=== PATIENT | female | born 1930 | race Caucasian/White ===

== ENCOUNTER 2017-07-21 12:48 | Inpatient (IN) | payer MEDICAID ==
[2017-07-21 13:32] VITALS: BP 99/60
[2017-07-21] MEDS: D5-0.45NS 1,000 ML IV SCH ×2 (13:58→23:49)
[2017-07-21 14:30] LABS: HEMOGLOBIN 11.6 gm/dL (12-16); MANUAL DIFF REQUIRED? YES; MEAN CELL VOLUME 85.8 fl (81-100); MEAN CORPUSCULAR HEMOGLOBIN 29.3 pg (27.0-31.0); MEAN CORPUSCULAR HGB CONC 34.1 pg (28.0-36.0); PLATELET COUNT 288 Th/cmm (150-400); RED BLOOD COUNT 3.97 Mil/cmm (3.80-5.20)
[2017-07-21 14:40] LABS: ANION GAP 11.2 (7.0-16.0); BUN - UREA NITROGEN 16 mg/dL (7-25); CALCIUM SERUM 8.5 mg/dL (8.6-10.3); CARBON DIOXIDE 21.5 mEq/L (21.0-31.0); CHLORIDE 106 mEq/L (98-107); CREATININE - SERUM 0.7 mg/dL (0.6-1.2); GLUCOSE 157 mg/dL (70-105); POTASSIUM SERUM 3.7 mEq/L (3.5-5.1); SODIUM SERUM 135 mEq/L (136-145)
[2017-07-21 14:44] LABS: WHITE BLOOD COUNT 16.9 Th/cmm (4.8-10.8)
[2017-07-21] MEDS ORDERED: KCL 20mEq/100mL Premix 20 MEQ/100 ML PIGGYBACK IV ONE (14:58)
[2017-07-21 15:09] LABS: BAND NEUTROPHILE 14 % (0-10); BASOPHIL 0 % (0-3); EOSINOPHIL 0 % (0-5); LYMPHOCYTE 5 % (20-50); MONOCYTE 2 % (2-10); NEUTROPHILS 79 % (40-80); PLATELET ESTIMATE ADEQUATE (NORMAL); PLATELET MORPHOLOGY NORMAL (NORMAL); TOTAL CELLS COUNTED 100
[2017-07-21 15:14] LABS: URINE BILIRUBIN NEGATIVE (NEGATIVE); URINE BLOOD MODERATE (NEGATIVE); URINE GLUCOSE (UA) NEGATIVE (NEGATIVE); URINE KETONE NEGATIVE (NEGATIVE); URINE LEUKOCYTE ESTERASE MODERATE (NEGATIVE); URINE MICROSCOPIC INDICATED? YES; URINE NITRATE POSITIVE (NEGATIVE); URINE PROTEIN 30 mg/dL (NEGATIVE); URINE SOURCE FOLEY PORT; URINE UROBILINOGEN 0.2 E.U./dL (0.2 - 1.0)
[2017-07-21 15:23] LABS: URINE CLARITY HAZY (CLEAR); URINE COLOR YELLOW
[2017-07-21 15:24] LABS: URINE BACTERIA MODERATE /hpf (NONE SEEN); URINE EPITHELIAL CELLS FEW /lpf (FEW); URINE WBC 25-50 /hpf (0-5)
[2017-07-21] MEDS ORDERED: VTE Chemical Prophylaxis Screen/Admission MC PRN (16:45)
[2017-07-21] MEDS: Levofloxacin 500mg/100mL 500 MG/100 ML BAG IV SCH (18:03)
[2017-07-22 05:15] LABS: HEMATOCRIT 31.3 % (41.0-60); HEMOGLOBIN 10.6 gm/dL (12-16); MEAN CELL VOLUME 85.2 fl (81-100); MEAN CORPUSCULAR HEMOGLOBIN 28.9 pg (27.0-31.0); MEAN CORPUSCULAR HGB CONC 33.9 pg (28.0-36.0); MEAN PLATELET VOLUME 7.2 fl; RED BLOOD COUNT 3.67 Mil/cmm (3.80-5.20); RED CELL DISTRIBUTION WIDTH 14.4 % (11.5-20.0)
[2017-07-22 05:16] LABS: MANUAL DIFF REQUIRED? YES; PLATELET COUNT 222 Th/cmm (150-400); WHITE BLOOD COUNT 11.8 Th/cmm (4.8-10.8)
[2017-07-22 05:28] LABS: INR 1.05 (0.5-1.4); PROTHROMBIN TIME (TEST) 10.9 SECONDS (9.5-11.5)
[2017-07-22 05:30] LABS: ALB/GLOB RATIO 1.3 (1.0-1.8); ALBUMIN 3.3 gm/dL (3.7-5.3); ALKALINE PHOSPHATASE 80 U/L (34-104); ANION GAP 7.9 (7.0-16.0); BILIRUBIN,TOTAL 0.5 mg/dL (0.3-1.0); BUN - UREA NITROGEN 11 mg/dL (7-25); CALCIUM SERUM 8.2 mg/dL (8.6-10.3); CARBON DIOXIDE 21.1 mEq/L (21.0-31.0); CHLORIDE 103 mEq/L (98-107); CREATININE - SERUM 0.7 mg/dL (0.6-1.2); GLUCOSE 159 mg/dL (70-105); MAGNESIUM 1.6 mg/dL (1.9-2.7); PHOSPHOROUS 1.9 mg/dL (2.5-5.0); SGOT 27 U/L (13-39); SGPT/ALT 22 U/L (7-52); SODIUM SERUM 129 mEq/L (136-145); TOTAL PROTEIN,SERUM 5.9 gm/dL (6.0-8.3)
[2017-07-22 05:46] LABS: BAND NEUTROPHILE 7 % (0-10); LYMPHOCYTE 5 % (20-50); MONOCYTE 1 % (2-10); NEUTROPHILS 87 % (40-80); TOTAL CELLS COUNTED 100
[2017-07-22] MEDS: KCL 20mEq/100mL Premix 20 MEQ/100 ML PIGGYBACK IV SCH ×2 (07:53→10:20)
--- NOTE | 2017-07-22 08:27 | Diagnostic Imaging Report ---
Exam: Portable chest x-ray HISTORY: pneumonia. I needs: Portable examination of the chest at 1559 hours reviewed. No prior studies available comparison. The study demonstrates mild congestion. Bilateral basilar infiltrates and effusions appreciated. The patient significantly rotated. The visualized bony thorax are marked degenerative osteopenia. IMPRESSION: 1. Congestion 2. Bilateral basilar pneumonia with effusions follow-up examination is recommended.
--- NOTE | 2017-07-22 10:08 | Consultation ---
DATE OF CONSULTATION: 07/21/2017 ATTENDING PHYSICIAN: Dr. Vivas. ANESTHESIA ASSOCIATE: Vasquez Dey MD REASON FOR CONSULTATION: Worsening kidney function and electrolyte imbalance and fluid management. HISTORY OF PRESENT ILLNESS: This is an 86-year-old female with past medical history none, who was transferred from [facility] to [facility] for further management. A few hours prior to admission, the patient developed nausea and vomiting. This was associated with generalized weakness, chills, but no fever. She was then brought to the Emergency Room. Her white count was 10.9 with a lipase of 20 and temperature of 101.[address] scan of the head showed cortical atrophy with deep white matter ischemic changes. Chest x-ray revealed no acute disease. CT scan of the abdomen/pelvis showed gallbladder stones, distal left ureteral stone with mild left hydroureter. There is mild compression fracture from T9 to L4, age undetermined and moderate stool in the rectum. Her BUN/creatinine were 20/1.1 with a potassium of 3.3. No diarrhea, abdominal pain, shortness of breath, no chest pain. PAST MEDICAL HISTORY: None. CURRENT MEDICATIONS: Acetaminophen, levofloxacin, vancomycin. ALLERGIES: No known drug allergies. SOCIAL AND FAMILY HISTORY: I was unable to obtain directly from the patient because of patient's depressed mental status as well as dementia. REVIEW OF SYSTEMS: Again, I was unable to decipher directly from the patient because of her current mental status. PHYSICAL EXAMINATION: GENERAL: The patient is awake, not in any form of distress, responds by saying "si." VITAL SIGNS: Her blood pressure now is 99/60. SKIN: Poor turgor, warm, no rash, no jaundice appreciated. HEENT: Head normocephalic, atraumatic. Eyes: Extraocular muscles intact. Pupils equal, round, reactive to light and accommodates. Anicteric sclerae. Pale conjunctivae. Nose, midline nasal septum. Mouth, dry mucosa with poor dentition. NECK: Supple. No adenopathy, no thyromegaly, no bruits. Trachea palpated in the midline. CHEST AND CVS: S1, S2. No rub, murmur, no gallop appreciated. Point of maximal impulse fifth intercostal space, left midclavicular line. No abdominal or femoral bruits appreciated. LUNGS: Equal expansion. No use of accessory muscles. No supraclavicular retractions. Decreased breath sounds, few rhonchi, but no rales or wheezes or congestion appreciated. Breast symmetrical, without any discharge. ABDOMEN: Flat, soft. Positive for bowel sounds. No tenderness on the palpation. No guarding, no site. No bruit either diastolic or systolic. RECTAL: The patient refused. GENITOURINARY: Normal appearing female genitalia. MUSCULOSKELETAL: No effusions present in her joints, unable to assess her range of motion. EXTREMITIES: She has no evidence of any edema, cyanosis or clubbing with palpable femoral, popliteal and dorsalis pedis pulses. NEUROLOGIC: The patient is awake; however, unable to follow my neuro commands, so I was unable to pursue further my neuro exam. LABORATORY DATA: Still pending. IMPRESSION: 1. Mild prerenal azotemia with underlying history of nausea and vomiting. 2. Sepsis secondary to complicated urinary tract infection. 3. Left hydroureter secondary to left ureteral stone. 4. Gallbladder stone with history of fever, mild leukocytosis, nausea and vomiting, possible acute cholecystitis. 5. 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 PLAN: 1. Continue with IV fluids. 2. Started blood expected antibiotics. 3. Follow up blood culture x 2. 4. Urine C and S. 5. Urology consult. 6. HIDA scan. 7. Urinalysis. 8. Urine spot sodium, eosinophils and creatinine. 9. Urine microalbumin to creatinine ratio. Thank you Dr. Vivas for this consult. I will follow the patient closely with you. [facility]# [id number]
[2017-07-22] MEDS ORDERED: IOHEXOL 300mgI/mL 50 ML VIAL ONE (13:06)
[2017-07-22] MEDS ORDERED: Tolterodine Tartrate 2 mg ER Cap PO SCH (14:00)
[2017-07-22] MEDS ORDERED: Mag Sulfate 2gm/50mL Premix 2 GM/50 ML BAG IV ONE (14:13)
[2017-07-22] MEDS ORDERED: Midazolam 1mg/ml 2 ml vial IV ONE (14:18)
--- NOTE | 2017-07-22 14:19 | General Progress Note ---
Subjective - Review of Systems Service Date: 07/22/17 Subjective: awake, nonverbal. comfortable Objective - Results Result Diagrams: 07/22/17 05:05 07/22/17 05:05 Recent Labs: Laboratory Last Values WBC 11.8 Th/cmm (4.8-10.8) H D 07/22/17 05:05 RBC 3.67 Mil/cmm (3.80-5.20) L 07/22/17 05:05 Hgb 10.6 gm/dL (12-16) L 07/22/17 05:05 Hct 31.3 % (41.0-60) L 07/22/17 05:05 MCV 85.2 fl (81-100) 07/22/17 05:05 MCH 28.9 pg (27.0-31.0) 07/22/17 05:05 MCHC Differential 33.9 pg (28.0-36.0) 07/22/17 05:05 RDW 14.4 % (11.5-20.0) 07/22/17 05:05 Plt Count 222 Th/cmm (150-400) D 07/22/17 05:05 MPV 7.2 fl 07/22/17 05:05 Band Neutrophils % 7 % (0-10) 07/22/17 05:05 Neutrophils (Manual) 87 % (40-80) H 07/22/17 05:05 Lymphocytes 5 % (20-50) L 07/22/17 05:05 Monocytes 1 % (2-10) L 07/22/17 05:05 Eosinophils 0 % (0-5) 07/21/17 14:15 Basophils 0 % (0-3) 07/21/17 14:15 Platelet Estimate ADEQUATE (NORMAL) 07/21/17 14:15 Platelet Morphology NORMAL (NORMAL) 07/21/17 14:15 RBC Morph Micro Appear NORMAL (NORMAL) 07/21/17 14:15 PT 10.9 SECONDS (9.5-11.5) 07/22/17 05:05 INR 1.05 (0.5-1.4) 07/22/17 05:05 PTT (Actin FS) 29.4 SECONDS (26.0-38.0) 07/22/17 05:05 Sodium 129 mEq/L (136-145) L 07/22/17 05:05 Potassium 3.0 mEq/L (3.5-5.1) L 07/22/17 05:05 Chloride 103 mEq/L (98-107) 07/22/17 05:05 Carbon Dioxide 21.1 mEq/L (21.0-31.0) 07/22/17 05:05 Anion Gap 7.9 (7.0-16.0) 07/22/17 05:05 BUN 11 mg/dL (7-25) 07/22/17 05:05 Creatinine 0.7 mg/dL (0.6-1.2) 07/22/17 05:05 Est GFR ( Amer) TNP 07/22/17 05:05 Est GFR (Non-Af Amer) TNP 07/22/17 05:05 BUN/Creatinine Ratio 15.7 07/22/17 05:05 Glucose 159 mg/dL (70-105) H 07/22/17 05:05 Whole Bld Lactic Acid 1.65 mmol/L (0.60-1.99) 07/22/17 05:05 Calcium 8.2 mg/dL (8.6-10.3) L 07/22/17 05:05 Phosphorus 1.9 mg/dL (2.5-5.0) L 07/22/17 05:05 Magnesium 1.6 mg/dL (1.9-2.7) L 07/22/17 05:05 Total Bilirubin 0.5 mg/dL (0.3-1.0) 07/22/17 05:05 AST 27 U/L (13-39) 07/22/17 05:05 ALT 22 U/L (7-52) 07/22/17 05:05 Alkaline Phosphatase 80 U/L (34-104) 07/22/17 05:05 Ammonia 38 umol/L (16-53) 07/21/17 14:15 Troponin I 0.65 ng/mL (0.01-0.05) H* 07/21/17 14:15 Total Protein 5.9 gm/dL (6.0-8.3) L 07/22/17 05:05 Albumin 3.3 gm/dL (3.7-5.3) L 07/22/17 05:05 Globulin 2.6 gm/dL 07/22/17 05:05 Albumin/Globulin Ratio 1.3 (1.0-1.8) 07/22/17 05:05 Urine Source [place] 07/21/17 14:50 Urine Color YELLOW 07/21/17 14:50 Urine Clarity HAZY (CLEAR) 07/21/17 14:50 Urine pH 8.0 (4.6 - 8.0) 07/21/17 14:50 Ur Specific [place] 1.015 (1.005-1.030) 07/21/17 14:50 Urine Protein 30 mg/dL (NEGATIVE) H 07/21/17 14:50 Urine Glucose (UA) NEGATIVE mg/dL (NEGATIVE) 07/21/17 14:50 Urine Ketones NEGATIVE mg/dL (NEGATIVE) 07/21/17 14:50 Urine Blood MODERATE (NEGATIVE) H 07/21/17 14:50 Urine Nitrate POSITIVE (NEGATIVE) H 07/21/17 14:50 Urine Bilirubin NEGATIVE (NEGATIVE) 07/21/17 14:50 Urine Urobilinogen 0.2 E.U./dL (0.2 - 1.0) 07/21/17 14:50 Ur Leukocyte Esterase MODERATE (NEGATIVE) H 07/21/17 14:50 Urine RBC 10-25 /hpf (0-5) H 07/21/17 14:50 Urine WBC 25-50 /hpf (0-5) H 07/21/17 14:50 Ur Epithelial Cells FEW /lpf (FEW) 07/21/17 14:50 Urine Bacteria MODERATE /hpf (NONE SEEN) H 07/21/17 14:50 - Physical Exam Vitals and I&O: Vital Signs Temp 100.8 F 07/22/17 12:00 Pulse 91 07/22/17 12:00 Resp 20 07/22/17 12:00 BP 148/79 07/22/17 12:00 Pulse Ox 96 07/22/17 12:00 Intake & Output 07/21/17 07/22/17 07/22/17 18:59 06:59 18:59 Intake Total 150 1100 100 Output Total 450 1600 Balance -300 -500 100 Weight (lbs) 55.792 kg 55.792 kg Intake: Intake, IV Amount 1000 100 D5-0.45NS 1,000 ml @ 150 1000 mls/hr IV .Q6H40M [facility] Rx# :[id number] KCL 20mEq/100mL Premix 20 100 meq In 100 ml @ 50 mls/ hr IV Q2H [facility] Rx#: [id number] Oral 150 100 Output: Urine 450 1600 Other: # Bowel Movements 0 0 Active Medications: Current Medications Acetaminophen (Tylenol) 650 mg PO Q4H PRN PRN Reason: Pain Or Fever >100 Stop: 09/19/17 13:36 Last Admin: 07/21/17 20:26 Dose: 650 mg Heparin Sodium (Porcine) (Heparin) 5,000 units SUBQ Q12HR [facility] Stop: 09/19/17 20:59 Last Admin: 07/22/17 10:38 Dose: Not Given Levofloxacin (Levaquin Pb) 500 mg in 100 mls @ 100 mls/hr IV Q24HR [facility] Stop: 09/19/17 14:44 Last Admin: 07/21/17 18:03 Dose: 100 mls/hr Dextrose/Sodium Chloride (D5-0.9%Ns) 1,000 mls @ 100 mls/hr IV .Q10H [facility] Stop: 09/20/17 14:14 Sodium Phosphate 20 mmole/ (Sodium Chloride) 256.6667 mls @ 42.5 mls/hr IV X1 ONE Stop: 07/22/17 20:14 Magnesium Sulfate (Magnesium Sulfate Premix) 2 gm in 50 mls @ 25 mls/hr IV X1 ONE Stop: 07/22/17 16:12 Miscellaneous (Vte Chemical Prophylaxis Screen/ Admission) 1 [facility] PRN PRN PRN Reason: PROTOCOL Stop: 09/19/17 16:44 Ondansetron HCl (Zofran) 4 mg IV Q4H PRN PRN Reason: Nausea / Vomiting Stop: 09/19/17 16:55 Oxybutynin Chloride (Ditropan) 5 mg PO BID [facility] Stop: 09/20/17 16:59 Tamsulosin HCl (Flomax) 0.4 mg PO DAILY [facility] Stop: 09/19/17 15:44 Last Admin: 07/22/17 10:15 Dose: Not Given Tramadol HCl (Ultram) 50 mg PO Q6HR PRN PRN Reason: Pain (Moderate) Stop: 09/19/17 16:56 General: Alert, No acute distress HEENT: PERRLA, EOMI, Mucous membr. moist/pink Neck: Supple, +2 carotid pulse wo bruit Cardiovascular: Regular rate, Normal S1, Normal S2 Lungs: Clear to auscultation Abdomen: Bowel sounds, Soft Extremities: no Edema Neurological: Sensation intact Skin: no Rash Psych/Mental Status: Mood NL Assessment/Plan - Assessment Assessment: Pre renal azotemia Sepsis 2nd tyo UTI Left hydroureter 2nd to Left ureteral stone GB stones Electrolyte imbalance - Plan Plan: Lab - Result Diagrams 07/22/17 05:05 07/22/17 05:05 Current Medications Acetaminophen (Tylenol) 650 mg PO Q4H PRN PRN Reason: Pain Or Fever >100 Stop: 09/19/17 13:36 Last Admin: 07/21/17 20:26 Dose: 650 mg Heparin Sodium (Porcine) (Heparin) 5,000 units SUBQ Q12HR [facility] Stop: 09/19/17 20:59 Last Admin: 07/22/17 10:38 Dose: Not Given Levofloxacin (Levaquin Pb) 500 mg in 100 mls @ 100 mls/hr IV Q24HR [facility] Stop: 09/19/17 14:44 Last Admin: 07/21/17 18:03 Dose: 100 mls/hr Dextrose/Sodium Chloride (D5-0.9%Ns) 1,000 mls @ 100 mls/hr IV .Q10H [facility] Stop: 09/20/17 14:14 Sodium Phosphate 20 mmole/ (Sodium Chloride) 256.6667 mls @ 42.5 mls/hr IV X1 ONE Stop: 07/22/17 20:14 Magnesium Sulfate (Magnesium Sulfate Premix) 2 gm in 50 mls @ 25 mls/hr IV X1 ONE Stop: 07/22/17 16:12 Miscellaneous (Vte Chemical Prophylaxis Screen/ Admission) 1 [facility] PRN PRN PRN Reason: PROTOCOL Stop: 09/19/17 16:44 Ondansetron HCl (Zofran) 4 mg IV Q4H PRN PRN Reason: Nausea / Vomiting Stop: 09/19/17 16:55 Oxybutynin Chloride (Ditropan) 5 mg PO BID [facility] Stop: 09/20/17 16:59 Tamsulosin HCl (Flomax) 0.4 mg PO DAILY [facility] Stop: 09/19/17 15:44 Last Admin: 07/22/17 10:15 Dose: Not Given Tramadol HCl (Ultram) 50 mg PO Q6HR PRN PRN Reason: Pain (Moderate) Stop: 09/19/17 16:56 Lab - Result Diagrams 07/22/17 05:05 07/22/17 05:05 replace Na, K, P04, Mg continue ABx switch to D5NS f/u electrolytes
--- NOTE | 2017-07-22 14:41 | Diagnostic Imaging Report ---
Fluoroscopy was utilized to facilitation of nephroureteral stent placement. Please refer to the procedural report for complete details. The total fluoroscopic time was 41 seconds.
[2017-07-22 15:33] LABS: HEMATOCRIT 31.7 % (41.0-60); HEMOGLOBIN 10.5 gm/dL (12-16); LYMPHOCYTE ABSOLUTE 0.2 Th/cmm (1.5-3.0); MANUAL DIFF REQUIRED? YES; MEAN CORPUSCULAR HGB CONC 33.3 pg (28.0-36.0); MEAN PLATELET VOLUME 7.2 fl; NEUTROPHILE ABSOLUTE 1.1 Th/cmm (1.8-8.0); RED BLOOD COUNT 3.64 Mil/cmm (3.80-5.20)
[2017-07-22 15:39] LABS: ALB/GLOB RATIO 1.2 (1.0-1.8); ALBUMIN 3.3 gm/dL (3.7-5.3); ALKALINE PHOSPHATASE 114 U/L (34-104); ANION GAP 12.7 (7.0-16.0); BILIRUBIN,TOTAL 0.8 mg/dL (0.3-1.0); BUN - UREA NITROGEN 10 mg/dL (7-25); CALCIUM SERUM 8.1 mg/dL (8.6-10.3); CHLORIDE 104 mEq/L (98-107); CREATININE - SERUM 0.7 mg/dL (0.6-1.2); GLUCOSE 140 mg/dL (70-105); POTASSIUM SERUM 3.7 mEq/L (3.5-5.1); SGOT 29 U/L (13-39); SGPT/ALT 22 U/L (7-52); SODIUM SERUM 133 mEq/L (136-145)
[2017-07-22 15:47] LABS: PLATELET COUNT 162 Th/cmm (150-400); WHITE BLOOD COUNT 1.3 Th/cmm (4.8-10.8)
[2017-07-22] MEDS ORDERED: Sodium Phosphate 20 MMOLE in Sodium Chloride 0.9% 250 ML IV ONE (16:00)
[2017-07-22] MEDS: Levofloxacin 500mg/100mL 500 MG/100 ML BAG IV SCH (16:27)
--- NOTE | 2017-07-22 16:58 | Consultation ---
DATE OF CONSULTATION: 07/22/2017 UROLOGY CONSULTATION REASON FOR CONSULTATION: Seen for stone and hydronephrosis and sepsis. HISTORY OF PRESENT ILLNESS: This is an 86-year-old woman who was transferred from [facility] where she presented with abdominal pain and nausea and vomiting. She also had chills and weakness and a temperature up to 101. The patient has no history of stone disease in the past, but there is a question whether she had this many years ago. Details are unknown. No urologic surgery, hematuria, or history of bladder or kidney infections. PAST SURGICAL HISTORY: Negative. PAST MEDICAL HISTORY: Negative for diabetes, hypertension, or heart disease. MEDICATIONS: Before admission are as Tylenol, Levaquin, and vancomycin started at the other hospital. ALLERGIES: None. SOCIAL HISTORY: The patient is nonverbal and depressed after the demise of her . She also has some degree of dementia. REVIEW OF SYSTEMS: Obtained from the chart. No headaches, seizures, or weight loss. Denies chest pain, coughing, or shortness of breath. As per family members, we will communicate with her in some manner. Abdominal pain located on the left side. No guarding or rigidity. No organomegaly, mass, or hernia. Extremities, no edema or lymphadenopathy. Neurologic, nonfocal. PHYSICAL EXAMINATION: VITAL SIGNS: Temperature 100.8, blood pressure 148/79, heart rate 102. HEAD AND NECK: Normocephalic. Trachea central. Pupils equal and reactive. No jaundice. Thyroid and lymph nodes not palpable. Carotid bruit absent. CHEST: Symmetrical. LUNGS: Clear. No rales or rhonchi. HEART: Sounds normal in sinus rhythm, no murmur. ABDOMEN: Soft, tender in the left lower quadrant and left flank on percussion. No organomegaly, mass, or hernia. EXTREMITIES: No edema or lymphadenopathy. NEUROLOGIC: Nonfocal. Moves all 4 limbs. LABORATORY DATA: White count 16.9 yesterday, 11.8 today. There were 14 bands yesterday, today 7, hemoglobin 10.6, platelets adequate. PT/INR 1.0. Sodium 129, potassium 3, BUN 11, creatinine 0.7, glucose 159. Troponin 0.65. Urine showed moderate amount of blood, positive for nitrites, moderate amount of leukocyte esterase, 10-15 red cells, 25-50 white cells, and moderate bacteria. Urine culture, no growth after one day. CT from the outside shows a 5 mm stone in the left distal ureter with hydronephrosis and perinephric stranding. IMPRESSION: Left ureteral stone and obstruction with infection, elevated white count and fever. RECOMMENDATIONS: Recommend urgent stent insertion and elective stone surgery in the near future when she is stable. Surprisingly at this age, she has no other medical history. Thank you for this referral. [facility]# [id number]
--- NOTE | 2017-07-22 17:43 | Operative Report ---
DATE OF SURGERY: 07/22/2017 PREOPERATIVE DIAGNOSIS: Left ureteral stone with hydronephrosis and infection. POSTOPERATIVE DIAGNOSES: Left ureteral stone with hydronephrosis and infection and bladder stone. PROCEDURE: Cystoscopy, removal of bladder stone, left retrograde pyelogram with injection of contrast, insertion of double-J stent, left side under fluoroscopy guidance. INDICATION: The patient is an elderly 86-year-old who came in with a stone, abdominal pain and sepsis with elevated white count, fever and low blood pressure. This procedure was recommended as an urgent part of her treatment. FINDINGS: Cystoscopy showed small bladder stone, but otherwise unremarkable. Retrograde was also unremarkable with suggestion of stone in the lower ureter and double-J stent size 6 x 22 was placed in adequate position without any blood loss or complication. DESCRIPTION OF PROCEDURE: The patient was brought to the operating room, prepped and draped in the dorsal lithotomy position after general anesthesia was induced. After dilating the urethra, the bladder was entered and examined. Stone was noted. It was removed with the help of grasping forceps and sent for analysis. Left orifice was then cannulated and contrast was injected under fluoroscopy. Newspaper Inserter films were obtained and saved. The catheter was then used to pass a guidewire up into the kidney and after it was in satisfactory position, the catheter was removed. A 6 x 22 double-J stent was advanced over the wire, once again coiling the upper part in the renal pelvis and in the bladder to complete the procedure. She was returned to recovery in stable condition without blood loss or complication. JOB# [id number]
[2017-07-22 18:47] LABS: URINE MICROSCOPIC INDICATED? YES; URINE SOURCE RANDOM
[2017-07-22 18:49] LABS: URINE BILIRUBIN NEGATIVE (NEGATIVE); URINE BLOOD LARGE (NEGATIVE); URINE GLUCOSE (UA) NEGATIVE (NEGATIVE); URINE KETONE NEGATIVE (NEGATIVE); URINE LEUKOCYTE ESTERASE SMALL (NEGATIVE); URINE NITRATE POSITIVE (NEGATIVE); URINE PH 6.5 (4.6 - 8.0); URINE PROTEIN TRACE mg/dL (NEGATIVE); URINE UROBILINOGEN 0.2 E.U./dL (0.2 - 1.0)
[2017-07-22 18:50] LABS: URINE CLARITY HAZY (CLEAR); URINE COLOR YELLOW
[2017-07-22] MEDS: D5-0.9%NS 1,000 ML IV SCH (18:54)
[2017-07-22 19:03] LABS: URINE BACTERIA NONE SEEN /hpf (NONE SEEN); URINE EPITHELIAL CELLS FEW /lpf (FEW)
[2017-07-22 19:32] LABS: EOSINOPHIL SMEAR SOURCE URINE; EOSINOPHILS SMEAR COUNT NONE SEEN (NONE SEEN)
[2017-07-22 21:21] LABS: NEUTROPHILS 73 % (40-80); TOTAL CELLS COUNTED 100
[2017-07-22 21:22] LABS: BAND NEUTROPHILE 10 % (0-10); BASOPHIL 0 % (0-3); EOSINOPHIL 0 % (0-5); LYMPHOCYTE 15 % (20-50); MONOCYTE 3 % (2-10); PLATELET ESTIMATE ADEQUATE (NORMAL); PLATELET MORPHOLOGY PLATELET CLUMPS SEEN (NORMAL)
[2017-07-23 04:51] LABS: HEMATOCRIT 29.4 % (41.0-60); HEMOGLOBIN 9.8 gm/dL (12-16); LYMPHOCYTE ABSOLUTE 0.6 Th/cmm (1.5-3.0); MANUAL DIFF REQUIRED? YES; MEAN CELL VOLUME 86.4 fl (81-100); MEAN CORPUSCULAR HEMOGLOBIN 28.8 pg (27.0-31.0); MEAN CORPUSCULAR HGB CONC 33.3 pg (28.0-36.0); MEAN PLATELET VOLUME 7.5 fl; MONOCYTE ABSOLUTE 0.3 Th/cmm (0.3-1.0); NEUTROPHILE ABSOLUTE 8.7 Th/cmm (1.8-8.0); PLATELET COUNT 156 Th/cmm (150-400); RED BLOOD COUNT 3.41 Mil/cmm (3.80-5.20); RED CELL DISTRIBUTION WIDTH 14.4 % (11.5-20.0)
[2017-07-23 05:01] LABS: WHITE BLOOD COUNT 9.6 Th/cmm (4.8-10.8)
[2017-07-23 05:05] LABS: ANION GAP 9.8 (7.0-16.0); BUN - UREA NITROGEN 12 mg/dL (7-25); CALCIUM SERUM 7.8 mg/dL (8.6-10.3); CARBON DIOXIDE 20.6 mEq/L (21.0-31.0); CHLORIDE 110 mEq/L (98-107); CREATININE - SERUM 0.7 mg/dL (0.6-1.2); GLUCOSE 156 mg/dL (70-105); PHOSPHOROUS 2.3 mg/dL (2.5-5.0); POTASSIUM SERUM 3.4 mEq/L (3.5-5.1); SODIUM SERUM 137 mEq/L (136-145)
[2017-07-23 06:15] LABS: BAND NEUTROPHILE 36 % (0-10); EOSINOPHIL 1 % (0-5); LYMPHOCYTE 5 % (20-50); METAMYELOCYTE 3 % (0-0); MONOCYTE 3 % (2-10); MYELOCYTE 1 %; NEUTROPHILS 51 % (40-80); TOTAL CELLS COUNTED 100
[2017-07-23 06:17] LABS: HYPOCHROMIA 1+
[2017-07-23 06:18] LABS: PLATELET MORPHOLOGY PLATELET CLUMPS SEEN (NORMAL)
--- NOTE | 2017-07-23 08:28 | History & Physical ---
ADMIT DATE: 07/23/2017 CHIEF COMPLAINT: Abdominal pain. HISTORY OF PRESENT ILLNESS: This is an 86-year-old female who was originally seen in [facility] due to abdominal pain, nausea and vomiting for about 2-3 days. The patient was transferred to [facility] for continuity of care. REVIEW OF SYSTEMS: GENERAL: This is an 86-year-old female that appears as stated. No fever, no chills noted. HEENT: No headache. No dizziness. EYES: No eye pain, no blurring of vision. NECK: No neck pain. No nuchal rigidity. CHEST: No chest pain, no palpitation. RESPIRATORY: No coughing. No shortness of breath. GASTROINTESTINAL: Positive abdominal pain. Positive nausea. Positive vomiting. No diarrhea. No constipation. MUSCULOSKELETAL: No muscle pain, no joint pain. SOCIAL HISTORY: The patient lives at home with family members. SURGICAL HISTORY: Unremarkable. FAMILY HISTORY: Unremarkable. PAST MEDICAL HISTORY: Include osteoarthritis and questionable dementia. PHYSICAL EXAMINATION: VITAL SIGNS: Temperature 97.3, heart rate of 88, blood pressure 121/53, respirations 19 and 97% on 4 liters via nasal cannula. HEENT: Head is atraumatic and normocephalic. Eyes: Bilateral conjuctivae are clear. Bilateral pupils are equally round and reactive. NECK: Supple. No JVD. CARDIOVASCULAR: S1 and S2 without murmur. PULMONARY: Clear to auscultation. GASTROINTESTINAL: Soft and nontender without guarding. Positive bowel sounds. MUSCULOSKELETAL: No clubbing, no cyanosis noted. ASSESSMENT: 1. Left ureteral stone. 2. Hydronephrosis. 3. Prerenal azotemia. 4. Depression. 5. Dementia. 6. Osteoarthritis. PLAN: We will follow up with flatwork ironer due to worsening kidney functions and electrolyte imbalance. We will also going to follow up with urologist for management of hydronephrosis. We will also going to consult with ID doctor for possible renal infection. We will do medication reconciliation accordingly. We will also going to monitor patient's nutritional status. We will also going to monitor electrolyte status and also going to do pain management accordingly. Treatment plans were discussed with the patient's nurse. Treatment plans were discussed with Dr. Vivas. JOB# [id number]
--- NOTE | 2017-07-23 08:30 | Diagnostic Imaging Report ---
Exam: Portable chest x-ray HISTORY: Sepsis. Findings: Portable examination of the chest at 1559 hours reviewed, no prior studies available comparison. The study demonstrates congestive heart failure with superimposed basilar pneumonia most likely bilateral pleural effusions. Bony thorax remarkable for degenerative osteopenia. The aortic arch calcified. IMPRESSION: bilateral pneumonia, effusions. Superimposed congestive heart failure.
[2017-07-23] MEDS ORDERED: Cefepime 2 GM in Sodium Chloride 0.9% 100 ML IV SCH (09:00)
--- NOTE | 2017-07-23 09:18 | Consultation ---
Consult Note - Consult Note Service Date: 07/23/17 Referring Physician: Zay Vivas Consult Note: PHYSICIAN Consultation Note: Date of Admission: 07/21/17 Purpose of Consultation: Sepsis, UTI. Chief Complaint: Patient BECKY CABALLERO was admitted to location Intensive Care Unit with SEPSIS, ADB PAIN & ACUTE KIDNEY INJURY. History of Present Illness: 86 year female with no significant past medical history presented to call [facility] ER for nausea, vomiting, abdominal pain. It was assisted to the generalized weakness and try cough. Patient developed chills. Patient is also depressed and nonverbal since March after her . On initial evaluation her temperature was 101.3F and WBC count was 10,900. Lactic acid was 3.6. TSH abdomen and pelvis suggested bilateral small renal stones nonobstructive. Distal left ureter with mild prominent left hydroureter and perinephric fatty changes. For insurance purposes, she was transferred to [facility] for further care on 07/21/2017. Yesterday, cystoscopy was performed. Her WBC count dropped to 1500 and she developed fevers to 103F. ID consult was called for antibiotic management. Meanwhile, patient is receiving Zosyn. Past Medical History: Allergies Allergy/AdvReac Type Severity Reaction Status Date / Time No Known Allergies Allergy Verified 07/21/17 13:31 Vital Signs Temp 97.3 F 07/23/17 04:00 Pulse 88 07/23/17 06:00 Resp 19 07/23/17 06:00 BP 121/53 07/23/17 06:00 Pulse Ox 97 07/23/17 06:00 Intake & Output 07/22/17 07/23/17 07/23/17 18:59 06:59 18:59 Intake Total 300 800 Output Total 1200 Balance -900 800 Weight (lbs) 55.792 kg 55.792 kg Intake: Intake, IV Amount 300 100 KCL 20mEq/100mL Premix 20 200 meq In 100 ml @ 50 mls/ hr IV Q2H [facility] Rx#: [id number] Levofloxacin 500mg/100mL 100 500 mg In 100 ml @ 100 mls/hr IV Q24HR [facility] Rx#: [id number] Oral 0 700 Output: Urine 1200 Other: # Voids 4 # Bowel Movements 0 Laboratory Results - last 24 hr 07/22/17 07/22/17 07/22/17 15:10 15:10 15:10 WBC 1.3 L* D RBC 3.64 L Hgb 10.5 L Hct 31.7 L MCV 87.0 MCH 29.0 MCHC Differential 33.3 RDW 14.0 Plt Count 162 D MPV 7.2 Band Neutrophils % 10 Neutrophils (Manual) 73 Lymphocytes 15 L Monocytes 3 Eosinophils 0 Basophils 0 Metamyelocytes Myelocytes Hypochromia Platelet Estimate ADEQUATE Platelet Morphology PLATELET CLUMPS SEEN Microcytosis RBC Morph Micro Appear NORMAL Eos Smear Source Eos Smear Total Cells Sodium 133 L Potassium 3.7 Chloride 104 Carbon Dioxide 20.0 L Anion Gap 12.7 BUN 10 Creatinine 0.7 Est GFR ( Amer) TNP Est GFR (Non-Af Amer) TNP BUN/Creatinine Ratio 14.3 Glucose 140 H Whole Bld Lactic Acid 3.76 H* Calcium 8.1 L Phosphorus Magnesium Total Bilirubin 0.8 AST 29 ALT 22 Alkaline Phosphatase 114 H Total Protein 6.0 Albumin 3.3 L Globulin 2.7 Albumin/Globulin Ratio 1.2 Urine Source Urine Color Urine Clarity Urine pH Ur Specific [place] Urine Protein Urine Glucose (UA) Urine Ketones Urine Blood Urine Nitrate Urine Bilirubin Urine Urobilinogen Ur Leukocyte Esterase Urine RBC Urine WBC Ur Epithelial Cells Urine Bacteria Ur Random Sodium Urine Creatinine 07/22/17 07/22/17 07/22/17 17:30 17:30 17:30 WBC RBC Hgb Hct MCV MCH MCHC Differential RDW Plt Count MPV Band Neutrophils % Neutrophils (Manual) Lymphocytes Monocytes Eosinophils Basophils Metamyelocytes Myelocytes Hypochromia Platelet Estimate Platelet Morphology Microcytosis RBC Morph Micro Appear Eos Smear Source Eos Smear Total Cells Sodium Potassium Chloride Carbon Dioxide Anion Gap BUN Creatinine Est GFR ( Amer) Est GFR (Non-Af Amer) BUN/Creatinine Ratio Glucose Whole Bld Lactic Acid Calcium Phosphorus Magnesium Total Bilirubin AST ALT Alkaline Phosphatase Total Protein Albumin Globulin Albumin/Globulin Ratio Urine Source RANDOM Urine Color YELLOW Urine Clarity HAZY Urine pH 6.5 Ur Specific [place] 1.015 Urine Protein TRACE Urine Glucose (UA) NEGATIVE Urine Ketones NEGATIVE Urine Blood LARGE H Urine Nitrate POSITIVE H Urine Bilirubin NEGATIVE Urine Urobilinogen 0.2 Ur Leukocyte Esterase SMALL H Urine RBC 5-10 H Urine WBC 2-5 Ur Epithelial Cells FEW Urine Bacteria NONE SEEN Ur Random Sodium 113 Urine Creatinine 42.0 01/19/18 01/19/18 01/20/18 17:30 17:47 04:15 WBC RBC Hgb Hct MCV MCH MCHC Differential RDW Plt Count MPV Band Neutrophils % Neutrophils (Manual) Lymphocytes Monocytes Eosinophils Basophils Metamyelocytes Myelocytes Hypochromia Platelet Estimate Platelet Morphology Microcytosis RBC Morph Micro Appear Eos Smear Source URINE Eos Smear Total Cells NONE SEEN Sodium 137 Potassium 3.4 L Chloride 110 H Carbon Dioxide 20.6 L Anion Gap 9.8 BUN 12 Creatinine 0.7 Est GFR ( Amer) TNP Est GFR (Non-Af Amer) TNP BUN/Creatinine Ratio 17.1 Glucose 156 H Whole Bld Lactic Acid 2.01 H* Calcium 7.8 L Phosphorus 2.3 L Magnesium 2.0 Total Bilirubin AST ALT Alkaline Phosphatase Total Protein Albumin Globulin Albumin/Globulin Ratio Urine Source Urine Color Urine Clarity Urine pH Ur Specific [place] Urine Protein Urine Glucose (UA) Urine Ketones Urine Blood Urine Nitrate Urine Bilirubin Urine Urobilinogen Ur Leukocyte Esterase Urine RBC Urine WBC Ur Epithelial Cells Urine Bacteria Ur Random Sodium Urine Creatinine 07/23/17 07/23/17 04:15 04:15 WBC 9.6 D RBC 3.41 L Hgb 9.8 L Hct 29.4 L MCV 86.4 MCH 28.8 MCHC Differential 33.3 RDW 14.4 Plt Count 156 MPV 7.5 Band Neutrophils % 36 H Neutrophils (Manual) 51 Lymphocytes 5 L Monocytes 3 Eosinophils 1 Basophils Metamyelocytes 3 H Myelocytes 1 Hypochromia 1+ Platelet Estimate Platelet Morphology PLATELET CLUMPS SEEN Microcytosis 1+ RBC Morph Micro Appear NORMAL Eos Smear Source Eos Smear Total Cells Sodium Potassium Chloride Carbon Dioxide Anion Gap BUN Creatinine Est GFR ( Amer) Est GFR (Non-Af Amer) BUN/Creatinine Ratio Glucose Whole Bld Lactic Acid 2.13 H* Calcium Phosphorus Magnesium Total Bilirubin AST ALT Alkaline Phosphatase Total Protein Albumin Globulin Albumin/Globulin Ratio Urine Source Urine Color Urine Clarity Urine pH Ur Specific [place] Urine Protein Urine Glucose (UA) Urine Ketones Urine Blood Urine Nitrate Urine Bilirubin Urine Urobilinogen Ur Leukocyte Esterase Urine RBC Urine WBC Ur Epithelial Cells Urine Bacteria Ur Random Sodium Urine Creatinine Current Medications Generic Name Dose Route Start Last Admin Trade Name Freq PRN Reason Stop Dose Admin Acetaminophen 650 mg 07/21/17 13:37 07/21/17 20:26 Tylenol PO 09/19/17 13:36 650 mg Q4H PRN Administration Pain Or Fever >100 Heparin Sodium (Porcine) 5,000 units 07/21/17 21:00 07/23/17 08:30 Heparin SUBQ 09/19/17 20:59 5,000 units Q12HR [facility] Administration Levofloxacin 500 mg in 100 mls @ 100 mls/hr 07/21/17 14:45 07/22/17 17:27 Levaquin Pb IV 09/19/17 14:44 Infused Q24HR [facility] Infusion Dextrose/Sodium Chloride 1,000 mls @ 100 mls/hr 07/22/17 14:15 07/22/17 18:54 D5-0.9%Ns IV 09/20/17 14:14 100 mls/hr .Q10H [facility] Administration Cefepime HCl 2 gm/ Dextrose 100 mls @ 100 mls/hr 07/23/17 09:00 07/23/17 08: 31 IV 09/21/17 08:59 100 mls/hr Q12HR [facility] Administration Miscellaneous 1 ea 07/21/17 16:45 Vte Chemical Prophylaxis Screen/ Admission 09/19/17 16:44 PRN PRN PROTOCOL Ondansetron HCl 4 mg 07/21/17 16:56 Zofran IV 09/19/17 16:55 Q4H PRN Nausea / Vomiting Oxybutynin Chloride 5 mg 07/22/17 17:00 07/23/17 08:30 Ditropan PO 09/20/17 16:59 5 mg BID [facility] Administration Tamsulosin HCl 0.4 mg 07/21/17 15:45 07/23/17 08:30 Flomax PO 09/19/17 15:44 0.4 mg DAILY [facility] Administration Tramadol HCl 50 mg 07/21/17 16:57 Ultram PO 09/19/17 16:56 Q6HR PRN Pain (Moderate) Review of Systems: A 12 point ROS was reviewed with the pertinent positive and negatives noted in the HPI. Social History Lives at home. Smoking Status Unknown if ever smoked Family Medical History Family Medical History Start: 07/21/17 13: 25 Freq: ONCE Status: Active Document 07/21/17 16:15 RUT (Rec: 07/21/17 16:34 RUT [id number] ) Family Medical History Mother History Unknown Yes Physical Exam: General: Comfortable not in acute distress. HEENT: Head: Normocephalic. Atraumatic. Oral cavity: moist pink tongue, eyes: Pallor is present icterus. Neck: Supple, no JVD. Cardio: S1 and S2 within normal limits. Respiratory: CTAP Abdominal: Soft nontender nondistended bowel sounds present Genital/Urinary: Deferred Extremities: No cyanosis, no clubbing,no edema Neurological: Alert, awake oriented. Assessment: 1. Sepsis. 2. UTI, pyelonephritis. Nephrolithiasis. 3. Neutropenia, improved. Plan: Continue cefepime. Follow the urine culture from there. Follow-up sepsis workup. Thank you, Dr. Vivas for involving me in taking care of this patient. Signed, Joe Sanches M.D. [id number]
[2017-07-23] MEDS ORDERED: Potassium Phosphate 20 MMOLE in Sodium Chloride 0.9% 250 ML IV ONE (12:59)
--- NOTE | 2017-07-23 13:00 | General Progress Note ---
Subjective - Review of Systems Service Date: 07/23/17 Subjective: awake, nonverbal. comfortable Objective - Results Result Diagrams: 07/23/17 04:15 07/23/17 04:15 Recent Labs: Laboratory Last Values WBC 9.6 Th/cmm (4.8-10.8) D 07/23/17 04:15 RBC 3.41 Mil/cmm (3.80-5.20) L 07/23/17 04:15 Hgb 9.8 gm/dL (12-16) L 07/23/17 04:15 Hct 29.4 % (41.0-60) L 07/23/17 04:15 MCV 86.4 fl (81-100) 07/23/17 04:15 MCH 28.8 pg (27.0-31.0) 07/23/17 04:15 MCHC Differential 33.3 pg (28.0-36.0) 07/23/17 04:15 RDW 14.4 % (11.5-20.0) 07/23/17 04:15 Plt Count 156 Th/cmm (150-400) 07/23/17 04:15 MPV 7.5 fl 07/23/17 04:15 Band Neutrophils % 36 % (0-10) H 07/23/17 04:15 Neutrophils (Manual) 51 % (40-80) 07/23/17 04:15 Lymphocytes 5 % (20-50) L 07/23/17 04:15 Monocytes 3 % (2-10) 07/23/17 04:15 Eosinophils 1 % (0-5) 07/23/17 04:15 Basophils 0 % (0-3) 07/22/17 15:10 Metamyelocytes 3 % (0-0) H 07/23/17 04:15 Myelocytes 1 % 07/23/17 04:15 Hypochromia 1+ 07/23/17 04:15 Platelet Estimate ADEQUATE (NORMAL) 07/22/17 15:10 Platelet Morphology PLATELET CLUMPS SEEN (NORMAL) 07/23/17 04:15 Microcytosis 1+ 07/23/17 04:15 RBC Morph Micro Appear NORMAL (NORMAL) 07/23/17 04:15 Eos Smear Source URINE 07/22/17 17:30 Eos Smear Total Cells NONE SEEN (NONE SEEN) 07/22/17 17:30 PT 10.9 SECONDS (9.5-11.5) 07/22/17 05:05 INR 1.05 (0.5-1.4) 07/22/17 05:05 PTT (Actin FS) 29.4 SECONDS (26.0-38.0) 07/22/17 05:05 Sodium 137 mEq/L (136-145) 07/23/17 04:15 Potassium 3.4 mEq/L (3.5-5.1) L 07/23/17 04:15 Chloride 110 mEq/L (98-107) H 07/23/17 04:15 Carbon Dioxide 20.6 mEq/L (21.0-31.0) L 07/23/17 04:15 Anion Gap 9.8 (7.0-16.0) 07/23/17 04:15 BUN 12 mg/dL (7-25) 07/23/17 04:15 Creatinine 0.7 mg/dL (0.6-1.2) 07/23/17 04:15 Est GFR ( Amer) TNP 07/23/17 04:15 Est GFR (Non-Af Amer) TNP 07/23/17 04:15 BUN/Creatinine Ratio 17.1 07/23/17 04:15 Glucose 156 mg/dL (70-105) H 07/23/17 04:15 Whole Bld Lactic Acid 2.13 mmol/L (0.60-1.99) H* 07/23/17 04:15 Calcium 7.8 mg/dL (8.6-10.3) L 07/23/17 04:15 Phosphorus 2.3 mg/dL (2.5-5.0) L 07/23/17 04:15 Magnesium 2.0 mg/dL (1.9-2.7) 07/23/17 04:15 Total Bilirubin 0.8 mg/dL (0.3-1.0) 07/22/17 15:10 AST 29 U/L (13-39) 07/22/17 15:10 ALT 22 U/L (7-52) 07/22/17 15:10 Alkaline Phosphatase 114 U/L (34-104) H 07/22/17 15:10 Ammonia 38 umol/L (16-53) 07/21/17 14:15 Troponin I 0.65 ng/mL (0.01-0.05) H* 07/21/17 14:15 Total Protein 6.0 gm/dL (6.0-8.3) 07/22/17 15:10 Albumin 3.3 gm/dL (3.7-5.3) L 07/22/17 15:10 Globulin 2.7 gm/dL 07/22/17 15:10 Albumin/Globulin Ratio 1.2 (1.0-1.8) 07/22/17 15:10 Urine Source RANDOM 07/22/17 17:30 Urine Color YELLOW 07/22/17 17:30 Urine Clarity HAZY (CLEAR) 07/22/17 17:30 Urine pH 6.5 (4.6 - 8.0) 07/22/17 17:30 Ur Specific [place] 1.015 (1.005-1.030) 07/22/17 17:30 Urine Protein TRACE mg/dL (NEGATIVE) 07/22/17 17:30 Urine Glucose (UA) NEGATIVE mg/dL (NEGATIVE) 07/22/17 17:30 Urine Ketones NEGATIVE mg/dL (NEGATIVE) 07/22/17 17:30 Urine Blood LARGE (NEGATIVE) H 07/22/17 17:30 Urine Nitrate POSITIVE (NEGATIVE) H 07/22/17 17:30 Urine Bilirubin NEGATIVE (NEGATIVE) 07/22/17 17:30 Urine Urobilinogen 0.2 E.U./dL (0.2 - 1.0) 07/22/17 17:30 Ur Leukocyte Esterase SMALL (NEGATIVE) H 07/22/17 17:30 Urine RBC 5-10 /hpf (0-5) H 07/22/17 17:30 Urine WBC 2-5 /hpf (0-5) 07/22/17 17:30 Ur Epithelial Cells FEW /lpf (FEW) 07/22/17 17:30 Urine Bacteria NONE SEEN /hpf (NONE SEEN) 07/22/17 17:30 Ur Random Sodium 113 mmol/L 07/22/17 17:30 Urine Creatinine 42.0 mg/dl (28.0-217.0) 07/22/17 17:30 - Physical Exam Vitals and I&O: Vital Signs Temp 99 F 07/23/17 12:00 Pulse 99 07/23/17 12:00 Resp 26 07/23/17 12:00 BP 181/75 07/23/17 12:00 Pulse Ox 97 07/23/17 12:00 Intake & Output 07/22/17 07/23/17 07/23/17 18:59 06:59 18:59 Intake Total 300 800 Output Total 1200 Balance -900 800 Weight (lbs) 55.792 kg 55.792 kg Intake: Intake, IV Amount 300 100 KCL 20mEq/100mL Premix 20 200 meq In 100 ml @ 50 mls/ hr IV Q2H [facility] Rx#: [id number] Levofloxacin 500mg/100mL 100 500 mg In 100 ml @ 100 mls/hr IV Q24HR [facility] Rx#: [id number] Oral 0 700 Output: Urine 1200 Other: # Voids 4 # Bowel Movements 0 Active Medications: Current Medications Acetaminophen (Tylenol) 650 mg PO Q4H PRN PRN Reason: Pain Or Fever >100 Stop: 09/19/17 13:36 Last Admin: 07/21/17 20:26 Dose: 650 mg Heparin Sodium (Porcine) (Heparin) 5,000 units SUBQ Q12HR [facility] Stop: 09/19/17 20:59 Last Admin: 07/23/17 08:30 Dose: 5,000 units Levofloxacin (Levaquin Pb) 500 mg in 100 mls @ 100 mls/hr IV Q24HR [facility] Stop: 09/19/17 14:44 Last Infusion: 07/22/17 17:27 Dose: Infused Dextrose/Sodium Chloride (D5-0.9%Ns) 1,000 mls @ 100 mls/hr IV .Q10H [facility] Stop: 09/20/17 14:14 Last Admin: 07/22/17 18:54 Dose: 100 mls/hr Cefepime HCl 2 gm/ Dextrose 100 mls @ 100 mls/hr IV Q12HR [facility] Stop: 09/21/17 08:59 Last Admin: 07/23/17 08:31 Dose: 100 mls/hr Miscellaneous (Vte Chemical Prophylaxis Screen/ Admission) 1 ea PRN PRN PRN Reason: PROTOCOL Stop: 09/19/17 16:44 Ondansetron HCl (Zofran) 4 mg IV Q4H PRN PRN Reason: Nausea / Vomiting Stop: 09/19/17 16:55 Oxybutynin Chloride (Ditropan) 5 mg PO BID [facility] Stop: 09/20/17 16:59 Last Admin: 07/23/17 08:30 Dose: 5 mg Tamsulosin HCl (Flomax) 0.4 mg PO DAILY [facility] Stop: 09/19/17 15:44 Last Admin: 07/23/17 08:30 Dose: 0.4 mg Tramadol HCl (Ultram) 50 mg PO Q6HR PRN PRN Reason: Pain (Moderate) Stop: 09/19/17 16:56 General: Alert, No acute distress HEENT: PERRLA, EOMI, Mucous membr. moist/pink Neck: Supple, +2 carotid pulse wo bruit Cardiovascular: Regular rate, Normal S1, Normal S2 Lungs: Clear to auscultation Abdomen: Bowel sounds, Soft Extremities: no Edema Neurological: Sensation intact Skin: no Rash Psych/Mental Status: Mood NL Assessment/Plan - Assessment Assessment: Pre renal azotemia Sepsis 2nd tyo UTI Left hydroureter 2nd to Left ureteral stone s/p left ureteral stent GB stones Electrolyte imbalance - Plan Plan: Lab - Result Diagrams 07/22/17 05:05 07/22/17 05:05 Current Medications Acetaminophen (Tylenol) 650 mg PO Q4H PRN PRN Reason: Pain Or Fever >100 Stop: 09/19/17 13:36 Last Admin: 07/21/17 20:26 Dose: 650 mg Heparin Sodium (Porcine) (Heparin) 5,000 units SUBQ Q12HR [facility] Stop: 09/19/17 20:59 Last Admin: 07/22/17 10:38 Dose: Not Given Levofloxacin (Levaquin Pb) 500 mg in 100 mls @ 100 mls/hr IV Q24HR [facility] Stop: 09/19/17 14:44 Last Admin: 07/21/17 18:03 Dose: 100 mls/hr Dextrose/Sodium Chloride (D5-0.9%Ns) 1,000 mls @ 100 mls/hr IV .Q10H [facility] Stop: 09/20/17 14:14 Sodium Phosphate 20 mmole/ (Sodium Chloride) 256.6667 mls @ 42.5 mls/hr IV X1 ONE Stop: 07/22/17 20:14 Magnesium Sulfate (Magnesium Sulfate Premix) 2 gm in 50 mls @ 25 mls/hr IV X1 ONE Stop: 07/22/17 16:12 Miscellaneous (Vte Chemical Prophylaxis Screen/ Admission) 1 ea PRN PRN PRN Reason: PROTOCOL Stop: 09/19/17 16:44 Ondansetron HCl (Zofran) 4 mg IV Q4H PRN PRN Reason: Nausea / Vomiting Stop: 09/19/17 16:55 Oxybutynin Chloride (Ditropan) 5 mg PO BID [facility] Stop: 09/20/17 16:59 Tamsulosin HCl (Flomax) 0.4 mg PO DAILY [facility] Stop: 09/19/17 15:44 Last Admin: 07/22/17 10:15 Dose: Not Given Tramadol HCl (Ultram) 50 mg PO Q6HR PRN PRN Reason: Pain (Moderate) Stop: 09/19/17 16:56 Lab - Result Diagrams 07/23/17 04:15 07/23/17 04:15 replace Na, K, P04, Mg continue ABx switch to D5NS f/u electrolytes, cbc Nutritional Asmnt/Malnutr-PDOC - Dietary Evaluation Malnutrition Findings (Please click <Entered> for more info): Nutritional Asmnt/Malnutrition Start: 07/22/17 15: 07 Text: Status: Complete Freq: Document 07/22/17 15:07 LCHENG (Rec: 07/22/17 15:21 [email or web address] [email or web address]) Nutritional Asmnt/Malnutrition Patient General Information Nutritional Screening High Risk Diagnosis sepsis, abdominal pain, acute kdney injury Pertinent Medical Hx/Surgical Hx None Subjective Information Pt was not in room at time of visit. Spoke with RN, pt was in surgery, NPO this morning. Per notes, pt had cystoscopy and left systic stent placement scheduled this morning. Per notes, pt consumed 75% of lunch on 07/21. Current Diet Order/ Nutrition Support Regular Pertinent Medications D5-0.9%Ns, levaquin, magnesium , sodium phosphate Pertinent Labs 07/22 Na 129, K 3.0, Cl 102, BUN 11, Cr 0.7, Glucose 159, Ca 8.2, Phos 1.9, Mg 1.6 Nutritional Hx/Data Height 1.55 m Height (Calculated Centimeters) 154.9 Current Weight (lbs) 55.792 kg Weight (Calculated Kilograms) 55.8 Weight (Calculated Grams) 15054.9 [place] Body Weight 105 % [place] Body Weight 117 Body Mass Index (BMI) 23.2 Weight Status Approriate GI Symptoms GI Symptoms None Last BM none Difficult in: None Skin Integrity/Comment: intact Estimated Nutritional Goals BEE in Kcals: Using Current wt Calories/Kcals/Kg 30-35 Kcals Calculated 9626-5838 Protein: Using Current wt Protein g/k.3-1.5 Protein Calculated 73-84 Fluid: ml 1680-1960ml (1ml/kcal) Nutritional Problem 2. Problem Problem altered nutrition related lab values Etiology imbalanced electrolytes and fluid Signs/Symptoms: Na 129, K 3.0, Ca 8.2, Phos 1. 9, Mg 1.6 1. Problem Problem increased nutrition needs ( calorie and protein) Etiology increased metabolic demand and energy expenditure Signs/Symptoms: dx of sepsis Intervention/Recommendation Comments 1. continue with regular diet as ordered. If oral diet not appropriate, will consider alternative nutrition route. 2. Monitor PO intake, wt, labs and skin integrity 3. F/U as high risk in 2-3 days, 07/24-07/25 Expected Outcomes/Goals Expected Outcomes/Goals 1. Pt to meet at least 75% of nutritional needs. 2. Wt stability, skin to remain intact, labs to normalize
[2017-07-23] MEDS: Levofloxacin 500mg/100mL 500 MG/100 ML BAG IV SCH (14:39)
[2017-07-23] MEDS ORDERED: Probiotic Screen MC PRN (15:23)
--- NOTE | 2017-07-23 17:10 | Progress Notes ---
DATE: SUBJECTIVE: The patient is in the ICU on no blood pressure support or any kind of drips. She is breathing normally, saturating well and maintaining a blood pressure and has been afebrile. She has not had any nausea, vomiting or fever and has tolerated her breakfast and lunch. PHYSICAL EXAMINATION: VITAL SIGNS: Temperature 98, heart rate 89, blood pressure 151/70. GENERAL: Her son is in the room who is helping us communicate with the patient who does not speak much. ABDOMEN: Soft. Flanks and bladder area nontender. No distention or rebound or guarding. EXTREMITIES: No edema. HEART: Sounds normal. LABORATORY DATA: White count has improved to 9.6 but the bands have increased to 36 and I am not sure if it is accurate, just like yesterday the white count was 1.3 at noon and was probably inaccurate. Electrolytes are normal. Potassium is 3.4 and acceptable. Creatinine 0.7, BUN 12. Lactic acid is also slightly increased compared to yesterday to 2.13 and this is therefore somewhat puzzling. Her blood cultures are negative and urine culture showed no growth, but was probably taken after antibiotics already on board and therefore unreliable. IMPRESSION: Right ureteral stone with obstruction and hydronephrosis, most likely sepsis. She now has a stent, which should help improve the drainage and the infection. The patient is currently on cefepime and Levaquin, which should be adequate to cover her infection; however, we do not have a culture to depend upon. [facility]# [id number]
[2017-07-23] MEDS: cefTRIAXone 2 GM in Sodium Chloride 0.9% 100 ML IV SCH (17:25)
[2017-07-23] MEDS: D5-0.9%NS 1,000 ML IV SCH (21:31)
[2017-07-24 05:58] LABS: % EOSINOPHILS 0.8 % (0.0-5.0); % LYMPHOCYTES 13.5 % (20.0-50.0); % MONOCYTES 7.4 % (2.0-10.0); % NEUTROPHILS 78.3 % (40.0-80.0); EOSINOPHILE ABSOLUTE 0.1 Th/cmm (0.1-0.4); HEMATOCRIT 29.6 % (41.0-60); LYMPHOCYTE ABSOLUTE 1.1 Th/cmm (1.5-3.0); MEAN CELL VOLUME 85.6 fl (81-100); MEAN CORPUSCULAR HGB CONC 33.9 pg (28.0-36.0); MONOCYTE ABSOLUTE 0.6 Th/cmm (0.3-1.0); NEUTROPHILE ABSOLUTE 6.5 Th/cmm (1.8-8.0); PLATELET COUNT 138 Th/cmm (150-400); RED BLOOD COUNT 3.45 Mil/cmm (3.80-5.20); RED CELL DISTRIBUTION WIDTH 14.2 % (11.5-20.0); WHITE BLOOD COUNT 8.3 Th/cmm (4.8-10.8)
[2017-07-24 06:18] LABS: ANION GAP 10.6 (7.0-16.0); BUN - UREA NITROGEN 9 mg/dL (7-25); CALCIUM SERUM 7.9 mg/dL (8.6-10.3); CHLORIDE 109 mEq/L (98-107); CREATININE - SERUM 0.6 mg/dL (0.6-1.2); GLUCOSE 133 mg/dL (70-105); PHOSPHOROUS 2.2 mg/dL (2.5-5.0); POTASSIUM SERUM 3.6 mEq/L (3.5-5.1); SODIUM SERUM 136 mEq/L (136-145)
[2017-07-24] MEDS: Lactobacillus Rhamnosus GG 15 Billion CFU CAP.SPRINK PO SCH (08:59)
--- NOTE | 2017-07-24 10:25 | General Progress Note ---
Subjective - Review of Systems Events since last encounter: patient with abd pain awake in no distress Objective - Results Result Diagrams: 07/24/17 05:32 07/24/17 05:32 Recent Labs: Laboratory Last Values WBC 8.3 Th/cmm (4.8-10.8) 07/24/17 05:32 RBC 3.45 Mil/cmm (3.80-5.20) L 07/24/17 05:32 Hgb 10.0 gm/dL (12-16) L 07/24/17 05:32 Hct 29.6 % (41.0-60) L 07/24/17 05:32 MCV 85.6 fl (81-100) 07/24/17 05:32 MCH 29.0 pg (27.0-31.0) 07/24/17 05:32 MCHC Differential 33.9 pg (28.0-36.0) 07/24/17 05:32 RDW 14.2 % (11.5-20.0) 07/24/17 05:32 Plt Count 138 Th/cmm (150-400) L 07/24/17 05:32 MPV 8.0 fl 07/24/17 05:32 Neutrophils % 78.3 % (40.0-80.0) 07/24/17 05:32 Band Neutrophils % 36 % (0-10) H 07/23/17 04:15 Lymphocytes % 13.5 % (20.0-50.0) L 07/24/17 05:32 Monocytes % 7.4 % (2.0-10.0) 07/24/17 05:32 Eosinophils % 0.8 % (0.0-5.0) 07/24/17 05:32 Basophils % 0.0 % (0.0-2.0) 07/24/17 05:32 Neutrophils (Manual) 51 % (40-80) 07/23/17 04:15 Lymphocytes 5 % (20-50) L 07/23/17 04:15 Monocytes 3 % (2-10) 07/23/17 04:15 Eosinophils 1 % (0-5) 07/23/17 04:15 Basophils 0 % (0-3) 07/22/17 15:10 Metamyelocytes 3 % (0-0) H 07/23/17 04:15 Myelocytes 1 % 07/23/17 04:15 Hypochromia 1+ 07/23/17 04:15 Platelet Estimate ADEQUATE (NORMAL) 07/22/17 15:10 Platelet Morphology PLATELET CLUMPS SEEN (NORMAL) 07/23/17 04:15 Microcytosis 1+ 07/23/17 04:15 RBC Morph Micro Appear NORMAL (NORMAL) 07/23/17 04:15 Eos Smear Source URINE 07/22/17 17:30 Eos Smear Total Cells NONE SEEN (NONE SEEN) 07/22/17 17:30 PT 10.9 SECONDS (9.5-11.5) 07/22/17 05:05 INR 1.05 (0.5-1.4) 07/22/17 05:05 PTT (Actin FS) 29.4 SECONDS (26.0-38.0) 07/22/17 05:05 Sodium 136 mEq/L (136-145) 07/24/17 05:32 Potassium 3.6 mEq/L (3.5-5.1) 07/24/17 05:32 Chloride 109 mEq/L (98-107) H 07/24/17 05:32 Carbon Dioxide 20.0 mEq/L (21.0-31.0) L 07/24/17 05:32 Anion Gap 10.6 (7.0-16.0) 07/24/17 05:32 BUN 9 mg/dL (7-25) 07/24/17 05:32 Creatinine 0.6 mg/dL (0.6-1.2) 07/24/17 05:32 Est GFR ( Amer) TNP 07/24/17 05:32 Est GFR (Non-Af Amer) TNP 07/24/17 05:32 BUN/Creatinine Ratio 15.0 07/24/17 05:32 Glucose 133 mg/dL (70-105) H 07/24/17 05:32 Whole Bld Lactic Acid 2.13 mmol/L (0.60-1.99) H* 07/23/17 04:15 Calcium 7.9 mg/dL (8.6-10.3) L 07/24/17 05:32 Phosphorus 2.2 mg/dL (2.5-5.0) L 07/24/17 05:32 Magnesium 2.0 mg/dL (1.9-2.7) 07/23/17 04:15 Total Bilirubin 0.8 mg/dL (0.3-1.0) 07/22/17 15:10 AST 29 U/L (13-39) 07/22/17 15:10 ALT 22 U/L (7-52) 07/22/17 15:10 Alkaline Phosphatase 114 U/L (34-104) H 07/22/17 15:10 Ammonia 38 umol/L (16-53) 07/21/17 14:15 Troponin I 0.65 ng/mL (0.01-0.05) H* 07/21/17 14:15 Total Protein 6.0 gm/dL (6.0-8.3) 07/22/17 15:10 Albumin 3.3 gm/dL (3.7-5.3) L 07/22/17 15:10 Globulin 2.7 gm/dL 07/22/17 15:10 Albumin/Globulin Ratio 1.2 (1.0-1.8) 07/22/17 15:10 Urine Source RANDOM 07/22/17 17:30 Urine Color YELLOW 07/22/17 17:30 Urine Clarity HAZY (CLEAR) 07/22/17 17:30 Urine pH 6.5 (4.6 - 8.0) 07/22/17 17:30 Ur Specific [place] 1.015 (1.005-1.030) 07/22/17 17:30 Urine Protein TRACE mg/dL (NEGATIVE) 07/22/17 17:30 Urine Glucose (UA) NEGATIVE mg/dL (NEGATIVE) 07/22/17 17:30 Urine Ketones NEGATIVE mg/dL (NEGATIVE) 07/22/17 17:30 Urine Blood LARGE (NEGATIVE) H 07/22/17 17:30 Urine Nitrate POSITIVE (NEGATIVE) H 07/22/17 17:30 Urine Bilirubin NEGATIVE (NEGATIVE) 07/22/17 17:30 Urine Urobilinogen 0.2 E.U./dL (0.2 - 1.0) 07/22/17 17:30 Ur Leukocyte Esterase SMALL (NEGATIVE) H 07/22/17 17:30 Urine RBC 5-10 /hpf (0-5) H 07/22/17 17:30 Urine WBC 2-5 /hpf (0-5) 07/22/17 17:30 Ur Epithelial Cells FEW /lpf (FEW) 07/22/17 17:30 Urine Bacteria NONE SEEN /hpf (NONE SEEN) 07/22/17 17:30 Ur Random Sodium 113 mmol/L 07/22/17 17:30 Urine Creatinine 42.0 mg/dl (28.0-217.0) 07/22/17 17:30 - Physical Exam Vitals and I&O: Vital Signs Temp 97.1 F 07/24/17 08:00 Pulse 79 07/24/17 08:00 Resp 20 07/24/17 08:00 BP 131/73 07/24/17 08:00 Pulse Ox 96 07/24/17 08:00 Intake & Output 07/23/17 07/24/17 07/24/17 18:59 06:59 18:59 Intake Total 750 400 Output Total 0 Balance 750 400 Weight (lbs) 55.792 kg 61.462 kg Intake: Intake, IV Amount 100 100 Cefepime 2 gm In Dextrose 100 5% 100 ml @ 100 mls/hr IV Q12HR [facility] Rx#: [id number] cefTRIAXone 2 gm In 100 Sodium Chloride 0.9% 100 ml @ 100 mls/hr IV Q24H [facility] Rx#:[id number] Oral 650 300 Output: Stool 0 Other: # Voids 4 2 # Bowel Movements 0 Active Medications: Current Medications Acetaminophen (Tylenol) 650 mg PO Q4H PRN PRN Reason: Pain Or Fever >100 Stop: 09/19/17 13:36 Last Admin: 07/24/17 05:08 Dose: 650 mg Heparin Sodium (Porcine) (Heparin) 5,000 units SUBQ Q12HR [facility] Stop: 09/19/17 20:59 Last Admin: 07/24/17 08:59 Dose: 5,000 units Dextrose/Sodium Chloride (D5-0.9%Ns) 1,000 mls @ 100 mls/hr IV .Q10H [facility] Stop: 09/20/17 14:14 Last Admin: 07/23/17 21:31 Dose: 100 mls/hr Ceftriaxone Sodium 2 gm/ (Sodium Chloride) 100 mls @ 100 mls/hr IV Q24H [facility] Stop: 09/21/17 16:14 Last Infusion: 07/23/17 20:00 Dose: Infused Lactobacillus Rhamnosus (Culturelle 15b) 1 each PO DAILY [facility] Stop: 09/22/17 08:59 Last Admin: 07/24/17 08:59 Dose: 1 each Miscellaneous (Vte Chemical Prophylaxis Screen/ Admission) 1 ea [facility] PRN PRN PRN Reason: PROTOCOL Stop: 09/19/17 16:44 Miscellaneous (Probiotic Screen) 1 ea [facility] PRN PRN PRN Reason: PROTOCOL Stop: 09/21/17 15:22 Ondansetron HCl (Zofran) 4 mg IV Q4H PRN PRN Reason: Nausea / Vomiting Stop: 09/19/17 16:55 Oxybutynin Chloride (Ditropan) 5 mg PO BID [facility] Stop: 09/20/17 16:59 Last Admin: 07/24/17 08:59 Dose: 5 mg Tamsulosin HCl (Flomax) 0.4 mg PO DAILY [facility] Stop: 09/19/17 15:44 Last Admin: 07/24/17 08:59 Dose: 0.4 mg Tramadol HCl (Ultram) 50 mg PO Q6HR PRN PRN Reason: Pain (Moderate) Stop: 09/19/17 16:56 General: Alert, No acute distress HEENT: PERRLA, EOMI, Mucous membr. moist/pink Neck: Supple, +2 carotid pulse wo bruit Cardiovascular: Regular rate, Normal S1, Normal S2 Lungs: Clear to auscultation Abdomen: Bowel sounds, Soft Extremities: no Edema Neurological: Sensation intact Skin: no Rash Psych/Mental Status: Mood NL Assessment/Plan - Problem List Patient Problems: All Active Problems Dementia (Acute) F03.90 Depression (Acute) F32.9 Hydronephrosis (Acute) N13.30 Left ureteral stone (Acute) N20.1 Osteoarthritis (Acute) M19.90 Prerenal azotemia (Acute) R79.89 - Plan Plan: labs pain management f/up consultants monitor Nutritional Asmnt/Malnutr-PDOC - Dietary Evaluation Malnutrition Findings (Please click <Entered> for more info): Nutritional Asmnt/Malnutrition Start: 07/22/17 15: 07 Text: Status: Complete Freq: Document 07/22/17 15:07 LCKARIG (Rec: 07/22/17 15:21 LCKARIG [email or web address]) Nutritional Asmnt/Malnutrition Patient General Information Nutritional Screening High Risk Diagnosis sepsis, abdominal pain, acute kdney injury Pertinent Medical Hx/Surgical Hx None Subjective Information Pt was not in room at time of visit. Spoke with RN, pt was in surgery, NPO this morning. Per notes, pt had cystoscopy and left systic stent placement scheduled this morning. Per notes, pt consumed 75% of lunch on 07/21. Current Diet Order/ Nutrition Support Regular Pertinent Medications D5-0.9%Ns, levaquin, magnesium , sodium phosphate Pertinent Labs 07/22 Na 129, K 3.0, Cl 102, BUN 11, Cr 0.7, Glucose 159, Ca 8.2, Phos 1.9, Mg 1.6 Nutritional Hx/Data Height 1.55 m Height (Calculated Centimeters) 154.9 Current Weight (lbs) 55.792 kg Weight (Calculated Kilograms) 55.8 Weight (Calculated Grams) 82776.9 [place] Body Weight 105 % [place] Body Weight 117 Body Mass Index (BMI) 23.2 Weight Status Approriate GI Symptoms GI Symptoms None Last BM none Difficult in: None Skin Integrity/Comment: intact Estimated Nutritional Goals BEE in Kcals: Using Current wt Calories/Kcals/Kg 30-35 Kcals Calculated 8514-4779 Protein: Using Current wt Protein g/k.3-1.5 Protein Calculated 73-84 Fluid: ml 1680-1960ml (1ml/kcal) Nutritional Problem 2. Problem Problem altered nutrition related lab values Etiology imbalanced electrolytes and fluid Signs/Symptoms: Na 129, K 3.0, Ca 8.2, Phos 1. 9, Mg 1.6 1. Problem Problem increased nutrition needs ( calorie and protein) Etiology increased metabolic demand and energy expenditure Signs/Symptoms: dx of sepsis Intervention/Recommendation Comments 1. continue with regular diet as ordered. If oral diet not appropriate, will consider alternative nutrition route. 2. Monitor PO intake, wt, labs and skin integrity 3. F/U as high risk in 2-3 days, 07/24-07/25 Expected Outcomes/Goals Expected Outcomes/Goals 1. Pt to meet at least 75% of nutritional needs. 2. Wt stability, skin to remain intact, labs to normalize
[2017-07-24] MEDS: D5-0.9%NS 1,000 ML IV SCH (12:17)
--- NOTE | 2017-07-24 13:59 | General Progress Note ---
Subjective - Review of Systems Service Date: 07/24/17 Subjective: awake, nonverbal. comfortable Objective - Results Result Diagrams: 07/24/17 05:32 07/24/17 05:32 Recent Labs: Laboratory Last Values WBC 8.3 Th/cmm (4.8-10.8) 07/24/17 05:32 RBC 3.45 Mil/cmm (3.80-5.20) L 07/24/17 05:32 Hgb 10.0 gm/dL (12-16) L 07/24/17 05:32 Hct 29.6 % (41.0-60) L 07/24/17 05:32 MCV 85.6 fl (81-100) 07/24/17 05:32 MCH 29.0 pg (27.0-31.0) 07/24/17 05:32 MCHC Differential 33.9 pg (28.0-36.0) 07/24/17 05:32 RDW 14.2 % (11.5-20.0) 07/24/17 05:32 Plt Count 138 Th/cmm (150-400) L 07/24/17 05:32 MPV 8.0 fl 07/24/17 05:32 Neutrophils % 78.3 % (40.0-80.0) 07/24/17 05:32 Band Neutrophils % 36 % (0-10) H 07/23/17 04:15 Lymphocytes % 13.5 % (20.0-50.0) L 07/24/17 05:32 Monocytes % 7.4 % (2.0-10.0) 07/24/17 05:32 Eosinophils % 0.8 % (0.0-5.0) 07/24/17 05:32 Basophils % 0.0 % (0.0-2.0) 07/24/17 05:32 Neutrophils (Manual) 51 % (40-80) 07/23/17 04:15 Lymphocytes 5 % (20-50) L 07/23/17 04:15 Monocytes 3 % (2-10) 07/23/17 04:15 Eosinophils 1 % (0-5) 07/23/17 04:15 Basophils 0 % (0-3) 07/22/17 15:10 Metamyelocytes 3 % (0-0) H 07/23/17 04:15 Myelocytes 1 % 07/23/17 04:15 Hypochromia 1+ 07/23/17 04:15 Platelet Estimate ADEQUATE (NORMAL) 07/22/17 15:10 Platelet Morphology PLATELET CLUMPS SEEN (NORMAL) 07/23/17 04:15 Microcytosis 1+ 07/23/17 04:15 RBC Morph Micro Appear NORMAL (NORMAL) 07/23/17 04:15 Eos Smear Source URINE 07/22/17 17:30 Eos Smear Total Cells NONE SEEN (NONE SEEN) 07/22/17 17:30 PT 10.9 SECONDS (9.5-11.5) 07/22/17 05:05 INR 1.05 (0.5-1.4) 07/22/17 05:05 PTT (Actin FS) 29.4 SECONDS (26.0-38.0) 07/22/17 05:05 Sodium 136 mEq/L (136-145) 07/24/17 05:32 Potassium 3.6 mEq/L (3.5-5.1) 07/24/17 05:32 Chloride 109 mEq/L (98-107) H 07/24/17 05:32 Carbon Dioxide 20.0 mEq/L (21.0-31.0) L 07/24/17 05:32 Anion Gap 10.6 (7.0-16.0) 07/24/17 05:32 BUN 9 mg/dL (7-25) 07/24/17 05:32 Creatinine 0.6 mg/dL (0.6-1.2) 07/24/17 05:32 Est GFR ( Amer) TNP 07/24/17 05:32 Est GFR (Non-Af Amer) TNP 07/24/17 05:32 BUN/Creatinine Ratio 15.0 07/24/17 05:32 Glucose 133 mg/dL (70-105) H 07/24/17 05:32 Whole Bld Lactic Acid 2.13 mmol/L (0.60-1.99) H* 07/23/17 04:15 Calcium 7.9 mg/dL (8.6-10.3) L 07/24/17 05:32 Phosphorus 2.2 mg/dL (2.5-5.0) L 07/24/17 05:32 Magnesium 2.0 mg/dL (1.9-2.7) 07/23/17 04:15 Total Bilirubin 0.8 mg/dL (0.3-1.0) 07/22/17 15:10 AST 29 U/L (13-39) 07/22/17 15:10 ALT 22 U/L (7-52) 07/22/17 15:10 Alkaline Phosphatase 114 U/L (34-104) H 07/22/17 15:10 Ammonia 38 umol/L (16-53) 07/21/17 14:15 Troponin I 0.65 ng/mL (0.01-0.05) H* 07/21/17 14:15 Total Protein 6.0 gm/dL (6.0-8.3) 07/22/17 15:10 Albumin 3.3 gm/dL (3.7-5.3) L 07/22/17 15:10 Globulin 2.7 gm/dL 07/22/17 15:10 Albumin/Globulin Ratio 1.2 (1.0-1.8) 07/22/17 15:10 Urine Source RANDOM 07/22/17 17:30 Urine Color YELLOW 07/22/17 17:30 Urine Clarity HAZY (CLEAR) 07/22/17 17:30 Urine pH 6.5 (4.6 - 8.0) 07/22/17 17:30 Ur Specific [place] 1.015 (1.005-1.030) 07/22/17 17:30 Urine Protein TRACE mg/dL (NEGATIVE) 07/22/17 17:30 Urine Glucose (UA) NEGATIVE mg/dL (NEGATIVE) 07/22/17 17:30 Urine Ketones NEGATIVE mg/dL (NEGATIVE) 07/22/17 17:30 Urine Blood LARGE (NEGATIVE) H 07/22/17 17:30 Urine Nitrate POSITIVE (NEGATIVE) H 07/22/17 17:30 Urine Bilirubin NEGATIVE (NEGATIVE) 07/22/17 17:30 Urine Urobilinogen 0.2 E.U./dL (0.2 - 1.0) 07/22/17 17:30 Ur Leukocyte Esterase SMALL (NEGATIVE) H 07/22/17 17:30 Urine RBC 5-10 /hpf (0-5) H 07/22/17 17:30 Urine WBC 2-5 /hpf (0-5) 07/22/17 17:30 Ur Epithelial Cells FEW /lpf (FEW) 07/22/17 17:30 Urine Bacteria NONE SEEN /hpf (NONE SEEN) 07/22/17 17:30 Ur Random Sodium 113 mmol/L 07/22/17 17:30 Urine Creatinine 42.0 mg/dl (28.0-217.0) 07/22/17 17:30 - Physical Exam Vitals and I&O: Vital Signs Temp 97.7 F 07/24/17 12:00 Pulse 89 07/24/17 12:00 Resp 19 07/24/17 12:00 BP 146/84 07/24/17 12:00 Pulse Ox 95 07/24/17 12:00 Intake & Output 07/23/17 07/24/17 07/24/17 18:59 06:59 18:59 Intake Total 931 798 0920 Output Total 0 Balance 570 816 1853 Weight (lbs) 55.792 kg 61.462 kg Intake: Intake, IV Amount 279 664 2850 Cefepime 2 gm In Dextrose 100 5% 100 ml @ 100 mls/hr IV Q12HR [facility] Rx#: [id number] D5-0.9%Ns 1,000 ml @ 100 1000 mls/hr IV .Q10H [facility] Rx#: [id number] cefTRIAXone 2 gm In 100 Sodium Chloride 0.9% 100 ml @ 100 mls/hr IV Q24H [facility] Rx#:[id number] Oral 650 300 Output: Stool 0 Other: # Voids 4 2 # Bowel Movements 0 Active Medications: Current Medications Acetaminophen (Tylenol) 650 mg PO Q4H PRN PRN Reason: Pain Or Fever >100 Stop: 09/19/17 13:36 Last Admin: 07/24/17 05:08 Dose: 650 mg Heparin Sodium (Porcine) (Heparin) 5,000 units SUBQ Q12HR [facility] Stop: 09/19/17 20:59 Last Admin: 07/24/17 08:59 Dose: 5,000 units Dextrose/Sodium Chloride (D5-0.9%Ns) 1,000 mls @ 100 mls/hr IV .Q10H [facility] Stop: 09/20/17 14:14 Last Admin: 07/24/17 12:17 Dose: 100 mls/hr Ceftriaxone Sodium 2 gm/ (Sodium Chloride) 100 mls @ 100 mls/hr IV Q24H [facility] Stop: 09/21/17 16:14 Last Infusion: 07/23/17 20:00 Dose: Infused Lactobacillus Rhamnosus (Culturelle 15b) 1 each PO DAILY [facility] Stop: 09/22/17 08:59 Last Admin: 07/24/17 08:59 Dose: 1 each Miscellaneous (Vte Chemical Prophylaxis Screen/ Admission) 1 ea PRN PRN PRN Reason: PROTOCOL Stop: 09/19/17 16:44 Miscellaneous (Probiotic Screen) 1 ea PRN PRN PRN Reason: PROTOCOL Stop: 09/21/17 15:22 Ondansetron HCl (Zofran) 4 mg IV Q4H PRN PRN Reason: Nausea / Vomiting Stop: 09/19/17 16:55 Oxybutynin Chloride (Ditropan) 5 mg PO BID [facility] Stop: 09/20/17 16:59 Last Admin: 07/24/17 08:59 Dose: 5 mg Tamsulosin HCl (Flomax) 0.4 mg PO DAILY [facility] Stop: 09/19/17 15:44 Last Admin: 07/24/17 08:59 Dose: 0.4 mg Tramadol HCl (Ultram) 50 mg PO Q6HR PRN PRN Reason: Pain (Moderate) Stop: 09/19/17 16:56 General: Alert, No acute distress HEENT: PERRLA, EOMI, Mucous membr. moist/pink Neck: Supple, +2 carotid pulse wo bruit Cardiovascular: Regular rate, Normal S1, Normal S2 Lungs: Clear to auscultation Abdomen: Bowel sounds, Soft Extremities: no Edema Neurological: Sensation intact Skin: no Rash Psych/Mental Status: Mood NL Assessment/Plan - Problem List Patient Problems: All Active Problems Dementia (Acute) F03.90 Depression (Acute) F32.9 Hydronephrosis (Acute) N13.30 Left ureteral stone (Acute) N20.1 Osteoarthritis (Acute) M19.90 Prerenal azotemia (Acute) R79.89 - Assessment Assessment: Pre renal azotemia Sepsis 2nd to UTI Left hydroureter 2nd to Left ureteral stone s/p left ureteral stent GB stones Electrolyte imbalance - Plan Plan: Lab - Result Diagrams 07/22/17 05:05 07/22/17 05:05 Current Medications Acetaminophen (Tylenol) 650 mg PO Q4H PRN PRN Reason: Pain Or Fever >100 Stop: 09/19/17 13:36 Last Admin: 07/21/17 20:26 Dose: 650 mg Heparin Sodium (Porcine) (Heparin) 5,000 units SUBQ Q12HR [facility] Stop: 09/19/17 20:59 Last Admin: 07/22/17 10:38 Dose: Not Given Levofloxacin (Levaquin Pb) 500 mg in 100 mls @ 100 mls/hr IV Q24HR [facility] Stop: 09/19/17 14:44 Last Admin: 07/21/17 18:03 Dose: 100 mls/hr Dextrose/Sodium Chloride (D5-0.9%Ns) 1,000 mls @ 100 mls/hr IV .Q10H [facility] Stop: 09/20/17 14:14 Sodium Phosphate 20 mmole/ (Sodium Chloride) 256.6667 mls @ 42.5 mls/hr IV X1 ONE Stop: 07/22/17 20:14 Magnesium Sulfate (Magnesium Sulfate Premix) 2 gm in 50 mls @ 25 mls/hr IV X1 ONE Stop: 07/22/17 16:12 Miscellaneous (Vte Chemical Prophylaxis Screen/ Admission) 1 ea [facility] PRN PRN PRN Reason: PROTOCOL Stop: 09/19/17 16:44 Ondansetron HCl (Zofran) 4 mg IV Q4H PRN PRN Reason: Nausea / Vomiting Stop: 09/19/17 16:55 Oxybutynin Chloride (Ditropan) 5 mg PO BID [facility] Stop: 09/20/17 16:59 Tamsulosin HCl (Flomax) 0.4 mg PO DAILY [facility] Stop: 09/19/17 15:44 Last Admin: 07/22/17 10:15 Dose: Not Given Tramadol HCl (Ultram) 50 mg PO Q6HR PRN PRN Reason: Pain (Moderate) Stop: 09/19/17 16:56 Lab - Result Diagrams 07/24/17 05:32 07/24/17 05:32 replace Na, K, P04, Mg continue ABx switch to D5NS f/u electrolytes, cbc Nutritional Asmnt/Malnutr-PDOC - Dietary Evaluation Malnutrition Findings (Please click <Entered> for more info): Nutritional Asmnt/Malnutrition Start: 07/22/17 15: 07 Text: Status: Complete Freq: Document 07/22/17 15:07 SHERING (Rec: 07/22/17 15:21 LCHENG [email or web address]) Nutritional Asmnt/Malnutrition Patient General Information Nutritional Screening High Risk Diagnosis sepsis, abdominal pain, acute kdney injury Pertinent Medical Hx/Surgical Hx None Subjective Information Pt was not in room at time of visit. Spoke with RN, pt was in surgery, NPO this morning. Per notes, pt had cystoscopy and left systic stent placement scheduled this morning. Per notes, pt consumed 75% of lunch on 07/21. Current Diet Order/ Nutrition Support Regular Pertinent Medications D5-0.9%Ns, levaquin, magnesium , sodium phosphate Pertinent Labs 07/22 Na 129, K 3.0, Cl 102, BUN 11, Cr 0.7, Glucose 159, Ca 8.2, Phos 1.9, Mg 1.6 Nutritional Hx/Data Height 1.55 m Height (Calculated Centimeters) 154.9 Current Weight (lbs) 55.792 kg Weight (Calculated Kilograms) 55.8 Weight (Calculated Grams) 53501.9 [place] Body Weight 105 % [place] Body Weight 117 Body Mass Index (BMI) 23.2 Weight Status Approriate GI Symptoms GI Symptoms None Last BM none Difficult in: None Skin Integrity/Comment: intact Estimated Nutritional Goals BEE in Kcals: Using Current wt Calories/Kcals/Kg 30-35 Kcals Calculated 6824-2914 Protein: Using Current wt Protein g/k.3-1.5 Protein Calculated 73-84 Fluid: ml 1680-1960ml (1ml/kcal) Nutritional Problem 2. Problem Problem altered nutrition related lab values Etiology imbalanced electrolytes and fluid Signs/Symptoms: Na 129, K 3.0, Ca 8.2, Phos 1. 9, Mg 1.6 1. Problem Problem increased nutrition needs ( calorie and protein) Etiology increased metabolic demand and energy expenditure Signs/Symptoms: dx of sepsis Intervention/Recommendation Comments 1. continue with regular diet as ordered. If oral diet not appropriate, will consider alternative nutrition route. 2. Monitor PO intake, wt, labs and skin integrity 3. F/U as high risk in 2-3 days, 07/24-07/25 Expected Outcomes/Goals Expected Outcomes/Goals 1. Pt to meet at least 75% of nutritional needs. 2. Wt stability, skin to remain intact, labs to normalize
[2017-07-24] MEDS: cefTRIAXone 2 GM in Sodium Chloride 0.9% 100 ML IV SCH (16:09)
--- NOTE | 2017-07-24 18:14 | Infectious Disease Prog Note ---
Infectious Disease Subjective - Review of Systems Service Date: 07/24/17 Events since last encounter: None. Subjective: There is no fever. urine culture from [place] grew Proteus mirabilis. Infectious Disease Objective - Results Result Diagrams: 07/24/17 05:32 07/24/17 05:32 Recent Labs: Laboratory Last Values WBC 8.3 Th/cmm (4.8-10.8) 07/24/17 05:32 RBC 3.45 Mil/cmm (3.80-5.20) L 07/24/17 05:32 Hgb 10.0 gm/dL (12-16) L 07/24/17 05:32 Hct 29.6 % (41.0-60) L 07/24/17 05:32 MCV 85.6 fl (81-100) 07/24/17 05:32 MCH 29.0 pg (27.0-31.0) 07/24/17 05:32 MCHC Differential 33.9 pg (28.0-36.0) 07/24/17 05:32 RDW 14.2 % (11.5-20.0) 07/24/17 05:32 Plt Count 138 Th/cmm (150-400) L 07/24/17 05:32 MPV 8.0 fl 07/24/17 05:32 Neutrophils % 78.3 % (40.0-80.0) 07/24/17 05:32 Band Neutrophils % 36 % (0-10) H 07/23/17 04:15 Lymphocytes % 13.5 % (20.0-50.0) L 07/24/17 05:32 Monocytes % 7.4 % (2.0-10.0) 07/24/17 05:32 Eosinophils % 0.8 % (0.0-5.0) 07/24/17 05:32 Basophils % 0.0 % (0.0-2.0) 07/24/17 05:32 Neutrophils (Manual) 51 % (40-80) 07/23/17 04:15 Lymphocytes 5 % (20-50) L 07/23/17 04:15 Monocytes 3 % (2-10) 07/23/17 04:15 Eosinophils 1 % (0-5) 07/23/17 04:15 Basophils 0 % (0-3) 07/22/17 15:10 Metamyelocytes 3 % (0-0) H 07/23/17 04:15 Myelocytes 1 % 07/23/17 04:15 Hypochromia 1+ 07/23/17 04:15 Platelet Estimate ADEQUATE (NORMAL) 07/22/17 15:10 Platelet Morphology PLATELET CLUMPS SEEN (NORMAL) 07/23/17 04:15 Microcytosis 1+ 07/23/17 04:15 RBC Morph Micro Appear NORMAL (NORMAL) 07/23/17 04:15 Eos Smear Source URINE 07/22/17 17:30 Eos Smear Total Cells NONE SEEN (NONE SEEN) 07/22/17 17:30 PT 10.9 SECONDS (9.5-11.5) 07/22/17 05:05 INR 1.05 (0.5-1.4) 07/22/17 05:05 PTT (Actin FS) 29.4 SECONDS (26.0-38.0) 07/22/17 05:05 Sodium 136 mEq/L (136-145) 07/24/17 05:32 Potassium 3.6 mEq/L (3.5-5.1) 07/24/17 05:32 Chloride 109 mEq/L (98-107) H 07/24/17 05:32 Carbon Dioxide 20.0 mEq/L (21.0-31.0) L 07/24/17 05:32 Anion Gap 10.6 (7.0-16.0) 07/24/17 05:32 BUN 9 mg/dL (7-25) 07/24/17 05:32 Creatinine 0.6 mg/dL (0.6-1.2) 07/24/17 05:32 Est GFR ( Amer) TNP 07/24/17 05:32 Est GFR (Non-Af Amer) TNP 07/24/17 05:32 BUN/Creatinine Ratio 15.0 07/24/17 05:32 Glucose 133 mg/dL (70-105) H 07/24/17 05:32 Whole Bld Lactic Acid 2.13 mmol/L (0.60-1.99) H* 07/23/17 04:15 Calcium 7.9 mg/dL (8.6-10.3) L 07/24/17 05:32 Phosphorus 2.2 mg/dL (2.5-5.0) L 07/24/17 05:32 Magnesium 2.0 mg/dL (1.9-2.7) 07/23/17 04:15 Total Bilirubin 0.8 mg/dL (0.3-1.0) 07/22/17 15:10 AST 29 U/L (13-39) 07/22/17 15:10 ALT 22 U/L (7-52) 07/22/17 15:10 Alkaline Phosphatase 114 U/L (34-104) H 07/22/17 15:10 Ammonia 38 umol/L (16-53) 07/21/17 14:15 Troponin I 0.65 ng/mL (0.01-0.05) H* 07/21/17 14:15 Total Protein 6.0 gm/dL (6.0-8.3) 07/22/17 15:10 Albumin 3.3 gm/dL (3.7-5.3) L 07/22/17 15:10 Globulin 2.7 gm/dL 07/22/17 15:10 Albumin/Globulin Ratio 1.2 (1.0-1.8) 07/22/17 15:10 Urine Source RANDOM 07/22/17 17:30 Urine Color YELLOW 07/22/17 17:30 Urine Clarity HAZY (CLEAR) 07/22/17 17:30 Urine pH 6.5 (4.6 - 8.0) 07/22/17 17:30 Ur Specific [place] 1.015 (1.005-1.030) 07/22/17 17:30 Urine Protein TRACE mg/dL (NEGATIVE) 07/22/17 17:30 Urine Glucose (UA) NEGATIVE mg/dL (NEGATIVE) 07/22/17 17:30 Urine Ketones NEGATIVE mg/dL (NEGATIVE) 07/22/17 17:30 Urine Blood LARGE (NEGATIVE) H 07/22/17 17:30 Urine Nitrate POSITIVE (NEGATIVE) H 07/22/17 17:30 Urine Bilirubin NEGATIVE (NEGATIVE) 07/22/17 17:30 Urine Urobilinogen 0.2 E.U./dL (0.2 - 1.0) 07/22/17 17:30 Ur Leukocyte Esterase SMALL (NEGATIVE) H 07/22/17 17:30 Urine RBC 5-10 /hpf (0-5) H 07/22/17 17:30 Urine WBC 2-5 /hpf (0-5) 07/22/17 17:30 Ur Epithelial Cells FEW /lpf (FEW) 07/22/17 17:30 Urine Bacteria NONE SEEN /hpf (NONE SEEN) 07/22/17 17:30 Ur Random Sodium 113 mmol/L 07/22/17 17:30 Urine Creatinine 42.0 mg/dl (28.0-217.0) 07/22/17 17:30 - Physical Exam Vitals and I&O: Vital Signs Temp 98.1 F 07/24/17 16:00 Pulse 91 07/24/17 16:00 Resp 19 07/24/17 16:00 BP 148/81 07/24/17 16:00 Pulse Ox 95 07/24/17 16:00 Intake & Output 07/23/17 07/24/17 07/24/17 18:59 06:59 18:59 Intake Total 202 351 7560 Output Total 0 Balance 219 069 6213 Weight (lbs) 55.792 kg 61.462 kg Intake: Intake, IV Amount 569 253 7433 Cefepime 2 gm In Dextrose 100 5% 100 ml @ 100 mls/hr IV Q12HR [facility] Rx#: [id number] D5-0.9%Ns 1,000 ml @ 100 1000 mls/hr IV .Q10H [facility] Rx#: [id number] cefTRIAXone 2 gm In 100 100 Sodium Chloride 0.9% 100 ml @ 100 mls/hr IV Q24H [facility] Rx#:[id number] Oral 650 300 Output: Stool 0 Other: # Voids 4 2 # Bowel Movements 0 Active Medications: Current Medications Acetaminophen (Tylenol) 650 mg PO Q4H PRN PRN Reason: Pain Or Fever >100 Stop: 09/19/17 13:36 Last Admin: 07/24/17 05:08 Dose: 650 mg Heparin Sodium (Porcine) (Heparin) 5,000 units SUBQ Q12HR [facility] Stop: 09/19/17 20:59 Last Admin: 07/24/17 08:59 Dose: 5,000 units Dextrose/Sodium Chloride (D5-0.9%Ns) 1,000 mls @ 100 mls/hr IV .Q10H [facility] Stop: 09/20/17 14:14 Last Admin: 07/24/17 12:17 Dose: 100 mls/hr Ceftriaxone Sodium 2 gm/ (Sodium Chloride) 100 mls @ 100 mls/hr IV Q24H [facility] Stop: 09/21/17 16:14 Last Infusion: 07/24/17 17:09 Dose: Infused Lactobacillus Rhamnosus (Culturelle 15b) 1 each PO DAILY [facility] Stop: 09/22/17 08:59 Last Admin: 07/24/17 08:59 Dose: 1 each Miscellaneous (Vte Chemical Prophylaxis Screen/ Admission) 1 ea PRN PRN PRN Reason: PROTOCOL Stop: 09/19/17 16:44 Miscellaneous (Probiotic Screen) 1 ea PRN PRN PRN Reason: PROTOCOL Stop: 09/21/17 15:22 Ondansetron HCl (Zofran) 4 mg IV Q4H PRN PRN Reason: Nausea / Vomiting Stop: 09/19/17 16:55 Oxybutynin Chloride (Ditropan) 5 mg PO BID [facility] Stop: 09/20/17 16:59 Last Admin: 07/24/17 17:07 Dose: 5 mg Tamsulosin HCl (Flomax) 0.4 mg PO DAILY [facility] Stop: 09/19/17 15:44 Last Admin: 07/24/17 08:59 Dose: 0.4 mg Tramadol HCl (Ultram) 50 mg PO Q6HR PRN PRN Reason: Pain (Moderate) Stop: 09/19/17 16:56 General: no acute distress, well developed, well nourished HEENT: atraumatic, normocephalic, PERRLA Neck: supple, no thyromegaly, no lymphadenopathy Cardiovascular: S1S2, regular Lungs: clear to auscultation bilaterally, clear to percussion Abdomen: soft, no tender, no distended Extremities: no cyanosis, no clubbing, no edema Neurological: awake, alert, oriented Infectious Disease Assmt/Plan - Problem List Patient Problems: All Active Problems Dementia (Acute) F03.90 Depression (Acute) F32.9 Hydronephrosis (Acute) N13.30 Left ureteral stone (Acute) N20.1 Osteoarthritis (Acute) M19.90 Prerenal azotemia (Acute) R79.89 - Assessment Assessment: 1. sepsis. 2. UTI, pyelonephritis. 3. Proteus infection. - Plan Plan: Continue ceftriaxone, it can be changed to cipro 250 mg po bid for 7 days from now. Nutritional Asmnt/Malnutr-PDOC - Dietary Evaluation Malnutrition Findings (Please click <Entered> for more info): Nutritional Asmnt/Malnutrition Start: 07/22/17 15: 07 Text: Status: Complete Freq: Document 07/22/17 15:07 BALBIR (Rec: 07/22/17 15:21 BALBIR [email or web address]) Nutritional Asmnt/Malnutrition Patient General Information Nutritional Screening High Risk Diagnosis sepsis, abdominal pain, acute kdney injury Pertinent Medical Hx/Surgical Hx None Subjective Information Pt was not in room at time of visit. Spoke with RN, pt was in surgery, NPO this morning. Per notes, pt had cystoscopy and left systic stent placement scheduled this morning. Per notes, pt consumed 75% of lunch on 07/21. Current Diet Order/ Nutrition Support Regular Pertinent Medications D5-0.9%Ns, levaquin, magnesium , sodium phosphate Pertinent Labs 07/22 Na 129, K 3.0, Cl 102, BUN 11, Cr 0.7, Glucose 159, Ca 8.2, Phos 1.9, Mg 1.6 Nutritional Hx/Data Height 1.55 m Height (Calculated Centimeters) 154.9 Current Weight (lbs) 55.792 kg Weight (Calculated Kilograms) 55.8 Weight (Calculated Grams) 25787.9 [place] Body Weight 105 % [place] Body Weight 117 Body Mass Index (BMI) 23.2 Weight Status Approriate GI Symptoms GI Symptoms None Last BM none Difficult in: None Skin Integrity/Comment: intact Estimated Nutritional Goals BEE in Kcals: Using Current wt Calories/Kcals/Kg 30-35 Kcals Calculated 2057-8891 Protein: Using Current wt Protein g/k.3-1.5 Protein Calculated 73-84 Fluid: ml 1680-1960ml (1ml/kcal) Nutritional Problem 2. Problem Problem altered nutrition related lab values Etiology imbalanced electrolytes and fluid Signs/Symptoms: Na 129, K 3.0, Ca 8.2, Phos 1. 9, Mg 1.6 1. Problem Problem increased nutrition needs ( calorie and protein) Etiology increased metabolic demand and energy expenditure Signs/Symptoms: dx of sepsis Intervention/Recommendation Comments 1. continue with regular diet as ordered. If oral diet not appropriate, will consider alternative nutrition route. 2. Monitor PO intake, wt, labs and skin integrity 3. F/U as high risk in 2-3 days, 07/24-07/25 Expected Outcomes/Goals Expected Outcomes/Goals 1. Pt to meet at least 75% of nutritional needs. 2. Wt stability, skin to remain intact, labs to normalize
--- NOTE | 2017-07-24 20:07 | Progress Notes ---
DATE: UROLOGY PROGRESS NOTE SUBJECTIVE: The patient continues to have pain off and on the right side of the abdomen, but tolerating diet quite well. No nausea, vomiting, or fever. PHYSICAL EXAMINATION: VITAL SIGNS: Temperature 98.1, heart rate 91, and blood pressure 148/81. GENERAL: She remains noncommunicable. ABDOMEN: Soft, nontender, nondistended. Flank also nontender. EXTREMITIES: No edema. Heart and lung sounds normal. LABORATORY DATA: White count down to 8.3 and hemoglobin 10.0. Both are stable. No more bands, which is encouraging and electrolytes are normal. BUN and creatinine 9 and 0.6 respectively. Culture from [facility] shows Proteus for which Dr. Sanches has her on the appropriate antibiotics and future recommendations. IMPRESSION: Ureteral stone with hydronephrosis and obstruction as well as infection, now improving with stent and antibiotics. The patient will require at least a week to 10 days of antibiotics and removal of the stent at a later date may be within a week or 2 and maybe ureteroscopy to make sure that the stone has passed. JOB# [id number]
[2017-07-25] MEDS: D5-0.9%NS 1,000 ML IV SCH ×2 (00:05→12:07)
[2017-07-25 05:52] LABS: HEMATOCRIT 30.7 % (41.0-60); HEMOGLOBIN 10.1 gm/dL (12-16); MEAN CELL VOLUME 86.4 fl (81-100); MEAN CORPUSCULAR HEMOGLOBIN 28.4 pg (27.0-31.0); MEAN CORPUSCULAR HGB CONC 32.8 pg (28.0-36.0); MEAN PLATELET VOLUME 7.7 fl; RED BLOOD COUNT 3.55 Mil/cmm (3.80-5.20); RED CELL DISTRIBUTION WIDTH 14.3 % (11.5-20.0); WHITE BLOOD COUNT 8.1 Th/cmm (4.8-10.8)
[2017-07-25 05:55] LABS: PLATELET COUNT 201 Th/cmm (150-400)
[2017-07-25 06:00] LABS: ANION GAP 8.5 (7.0-16.0); BUN - UREA NITROGEN 7 mg/dL (7-25); CALCIUM SERUM 7.8 mg/dL (8.6-10.3); CARBON DIOXIDE 21.8 mEq/L (21.0-31.0); CHLORIDE 109 mEq/L (98-107); CREATININE - SERUM 0.5 mg/dL (0.6-1.2); EOSINOPHILE ABSOLUTE 0.1 Th/cmm (0.1-0.4); GLUCOSE 130 mg/dL (70-105); LYMPHOCYTE ABSOLUTE 0.7 Th/cmm (1.5-3.0); MANUAL DIFF REQUIRED? YES; MONOCYTE ABSOLUTE 3.6 Th/cmm (0.3-1.0); NEUTROPHILE ABSOLUTE 3.8 Th/cmm (1.8-8.0); POTASSIUM SERUM 3.3 mEq/L (3.5-5.1); SODIUM SERUM 136 mEq/L (136-145)
[2017-07-25 08:24] LABS: BAND NEUTROPHILE 2 % (0-10); EOSINOPHIL 1 % (0-5); LYMPHOCYTE 16 % (20-50); MONOCYTE 8 % (2-10); NEUTROPHILS 73 % (40-80); TOTAL CELLS COUNTED 100
[2017-07-25] MEDS: Lactobacillus Rhamnosus GG 15 Billion CFU CAP.SPRINK PO SCH (10:14)
[2017-07-25] MEDS ORDERED: Potassium Chloride 20 mEq ER Tab PO ONE (11:40)
--- NOTE | 2017-07-25 12:38 | General Progress Note ---
Subjective - Review of Systems Events since last encounter: rt side of abd pain Objective - Results Result Diagrams: 07/25/17 05:32 07/25/17 05:32 Recent Labs: Laboratory Last Values WBC 8.1 Th/cmm (4.8-10.8) 07/25/17 05:32 RBC 3.55 Mil/cmm (3.80-5.20) L 07/25/17 05:32 Hgb 10.1 gm/dL (12-16) L 07/25/17 05:32 Hct 30.7 % (41.0-60) L 07/25/17 05:32 MCV 86.4 fl (81-100) 07/25/17 05:32 MCH 28.4 pg (27.0-31.0) 07/25/17 05:32 MCHC Differential 32.8 pg (28.0-36.0) 07/25/17 05:32 RDW 14.3 % (11.5-20.0) 07/25/17 05:32 Plt Count 201 Th/cmm (150-400) D 07/25/17 05:32 MPV 7.7 fl 07/25/17 05:32 Neutrophils % 78.3 % (40.0-80.0) 07/24/17 05:32 Band Neutrophils % 2 % (0-10) 07/25/17 05:32 Lymphocytes % 13.5 % (20.0-50.0) L 07/24/17 05:32 Monocytes % 7.4 % (2.0-10.0) 07/24/17 05:32 Eosinophils % 0.8 % (0.0-5.0) 07/24/17 05:32 Basophils % 0.0 % (0.0-2.0) 07/24/17 05:32 Neutrophils (Manual) 73 % (40-80) 07/25/17 05:32 Lymphocytes 16 % (20-50) L 07/25/17 05:32 Monocytes 8 % (2-10) 07/25/17 05:32 Eosinophils 1 % (0-5) 07/25/17 05:32 Basophils 0 % (0-3) 07/22/17 15:10 Metamyelocytes 3 % (0-0) H 07/23/17 04:15 Myelocytes 1 % 07/23/17 04:15 Hypochromia 1+ 07/23/17 04:15 Platelet Estimate ADEQUATE (NORMAL) 07/22/17 15:10 Platelet Morphology PLATELET CLUMPS SEEN (NORMAL) 07/23/17 04:15 Microcytosis 1+ 07/23/17 04:15 RBC Morph Micro Appear NORMAL (NORMAL) 07/23/17 04:15 Eos Smear Source URINE 07/22/17 17:30 Eos Smear Total Cells NONE SEEN (NONE SEEN) 07/22/17 17:30 PT 10.9 SECONDS (9.5-11.5) 07/22/17 05:05 INR 1.05 (0.5-1.4) 07/22/17 05:05 PTT (Actin FS) 29.4 SECONDS (26.0-38.0) 07/22/17 05:05 Sodium 136 mEq/L (136-145) 07/25/17 05:32 Potassium 3.3 mEq/L (3.5-5.1) L 07/25/17 05:32 Chloride 109 mEq/L (98-107) H 07/25/17 05:32 Carbon Dioxide 21.8 mEq/L (21.0-31.0) 07/25/17 05:32 Anion Gap 8.5 (7.0-16.0) 07/25/17 05:32 BUN 7 mg/dL (7-25) 07/25/17 05:32 Creatinine 0.5 mg/dL (0.6-1.2) L 07/25/17 05:32 Est GFR ( Amer) TNP 07/25/17 05:32 Est GFR (Non-Af Amer) TNP 07/25/17 05:32 BUN/Creatinine Ratio 14.0 07/25/17 05:32 Glucose 130 mg/dL (70-105) H 07/25/17 05:32 Whole Bld Lactic Acid 2.13 mmol/L (0.60-1.99) H* 07/23/17 04:15 Calcium 7.8 mg/dL (8.6-10.3) L 07/25/17 05:32 Phosphorus 2.2 mg/dL (2.5-5.0) L 07/24/17 05:32 Magnesium 2.0 mg/dL (1.9-2.7) 07/23/17 04:15 Total Bilirubin 0.8 mg/dL (0.3-1.0) 07/22/17 15:10 AST 29 U/L (13-39) 07/22/17 15:10 ALT 22 U/L (7-52) 07/22/17 15:10 Alkaline Phosphatase 114 U/L (34-104) H 07/22/17 15:10 Ammonia 38 umol/L (16-53) 07/21/17 14:15 Troponin I 0.65 ng/mL (0.01-0.05) H* 07/21/17 14:15 Total Protein 6.0 gm/dL (6.0-8.3) 07/22/17 15:10 Albumin 3.3 gm/dL (3.7-5.3) L 07/22/17 15:10 Globulin 2.7 gm/dL 07/22/17 15:10 Albumin/Globulin Ratio 1.2 (1.0-1.8) 07/22/17 15:10 Urine Source RANDOM 07/22/17 17:30 Urine Color YELLOW 07/22/17 17:30 Urine Clarity HAZY (CLEAR) 07/22/17 17:30 Urine pH 6.5 (4.6 - 8.0) 07/22/17 17:30 Ur Specific [place] 1.015 (1.005-1.030) 07/22/17 17:30 Urine Protein TRACE mg/dL (NEGATIVE) 07/22/17 17:30 Urine Glucose (UA) NEGATIVE mg/dL (NEGATIVE) 07/22/17 17:30 Urine Ketones NEGATIVE mg/dL (NEGATIVE) 07/22/17 17:30 Urine Blood LARGE (NEGATIVE) H 07/22/17 17:30 Urine Nitrate POSITIVE (NEGATIVE) H 07/22/17 17:30 Urine Bilirubin NEGATIVE (NEGATIVE) 07/22/17 17:30 Urine Urobilinogen 0.2 E.U./dL (0.2 - 1.0) 07/22/17 17:30 Ur Leukocyte Esterase SMALL (NEGATIVE) H 07/22/17 17:30 Urine RBC 5-10 /hpf (0-5) H 07/22/17 17:30 Urine WBC 2-5 /hpf (0-5) 07/22/17 17:30 Ur Epithelial Cells FEW /lpf (FEW) 07/22/17 17:30 Urine Bacteria NONE SEEN /hpf (NONE SEEN) 07/22/17 17:30 Ur Random Sodium 113 mmol/L 07/22/17 17:30 Urine Creatinine 42.0 mg/dl (28.0-217.0) 07/22/17 17:30 - Physical Exam Vitals and I&O: Vital Signs Temp 97.0 F 07/25/17 08:00 Pulse 85 07/25/17 08:00 Resp 18 07/25/17 11:50 BP 150/78 07/25/17 08:00 Pulse Ox 97 07/25/17 08:00 Intake & Output 07/24/17 07/25/17 07/25/17 18:59 06:59 18:59 Intake Total 1100 1200 1000 Balance 1100 1200 1000 Weight (lbs) 59.965 kg Intake: Intake, IV Amount 1100 1000 1000 D5-0.9%Ns 1,000 ml @ 100 1000 1000 1000 mls/hr IV .Q10H [facility] Rx#: [id number] cefTRIAXone 2 gm In 100 Sodium Chloride 0.9% 100 ml @ 100 mls/hr IV Q24H [facility] Rx#:[id number] Oral 200 Other: # Voids 3 # Bowel Movements 0 Active Medications: Current Medications Acetaminophen (Tylenol) 650 mg PO Q4H PRN PRN Reason: Pain Or Fever >100 Stop: 09/19/17 13:36 Last Admin: 07/24/17 05:08 Dose: 650 mg Heparin Sodium (Porcine) (Heparin) 5,000 units SUBQ Q12HR [facility] Stop: 09/19/17 20:59 Last Admin: 07/25/17 10:13 Dose: 5,000 units Dextrose/Sodium Chloride (D5-0.9%Ns) 1,000 mls @ 100 mls/hr IV .Q10H [facility] Stop: 09/20/17 14:14 Last Admin: 07/25/17 12:07 Dose: 100 mls/hr Ceftriaxone Sodium 2 gm/ (Sodium Chloride) 100 mls @ 100 mls/hr IV Q24H [facility] Stop: 09/21/17 16:14 Last Infusion: 07/24/17 17:09 Dose: Infused Lactobacillus Rhamnosus (Culturelle 15b) 1 each PO DAILY [facility] Stop: 09/22/17 08:59 Last Admin: 07/25/17 10:14 Dose: 1 each Miscellaneous (Vte Chemical Prophylaxis Screen/ Admission) 1 ea MC PRN PRN PRN Reason: PROTOCOL Stop: 09/19/17 16:44 Miscellaneous (Probiotic Screen) 1 ea MC PRN PRN PRN Reason: PROTOCOL Stop: 09/21/17 15:22 Ondansetron HCl (Zofran) 4 mg IV Q4H PRN PRN Reason: Nausea / Vomiting Stop: 09/19/17 16:55 Oxybutynin Chloride (Ditropan) 5 mg PO BID [facility] Stop: 09/20/17 16:59 Last Admin: 07/25/17 10:14 Dose: 5 mg Tamsulosin HCl (Flomax) 0.4 mg PO DAILY [facility] Stop: 09/19/17 15:44 Last Admin: 07/25/17 10:14 Dose: 0.4 mg Tramadol HCl (Ultram) 50 mg PO Q6HR PRN PRN Reason: Pain (Moderate) Stop: 09/19/17 16:56 Last Admin: 07/24/17 21:26 Dose: 50 mg General: Alert, No acute distress HEENT: PERRLA, EOMI, Mucous membr. moist/pink Neck: Supple, +2 carotid pulse wo bruit Cardiovascular: Regular rate, Normal S1, Normal S2 Lungs: Clear to auscultation Abdomen: Bowel sounds, Soft Extremities: no Edema Neurological: Sensation intact Skin: no Rash Psych/Mental Status: Mood NL - Procedures Procedures: Procedures Procedure Code Date CYSTOSCOPY 27728 07/21/17 DILATION OF LEFT URETER WITH INTRALUMINAL DEVICE, ENDO [id number] 07/21/17 EXTIRPATION OF MATTER FROM BLADDER, ENDO [id number] 07/21/17 Assessment/Plan - Problem List Patient Problems: All Active Problems Dementia (Acute) F03.90 Depression (Acute) F32.9 Hydronephrosis (Acute) N13.30 Left ureteral stone (Acute) N20.1 Osteoarthritis (Acute) M19.90 Prerenal azotemia (Acute) R79.89 - Plan Plan: labs pain management f/up consultants monitor Nutritional Asmnt/Malnutr-PDOC - Dietary Evaluation Malnutrition Findings (Please click <Entered> for more info): Nutritional Asmnt/Malnutrition Start: 07/22/17 15: 07 Text: Status: Complete Freq: Document 07/22/17 15:07 LCHENG (Rec: 07/22/17 15:21 HENG [email or web address]) Nutritional Asmnt/Malnutrition Patient General Information Nutritional Screening High Risk Diagnosis sepsis, abdominal pain, acute kdney injury Pertinent Medical Hx/Surgical Hx None Subjective Information Pt was not in room at time of visit. Spoke with RN, pt was in surgery, NPO this morning. Per notes, pt had cystoscopy and left systic stent placement scheduled this morning. Per notes, pt consumed 75% of lunch on 07/21. Current Diet Order/ Nutrition Support Regular Pertinent Medications D5-0.9%Ns, levaquin, magnesium , sodium phosphate Pertinent Labs 07/22 Na 129, K 3.0, Cl 102, BUN 11, Cr 0.7, Glucose 159, Ca 8.2, Phos 1.9, Mg 1.6 Nutritional Hx/Data Height 1.55 m Height (Calculated Centimeters) 154.9 Current Weight (lbs) 55.792 kg Weight (Calculated Kilograms) 55.8 Weight (Calculated Grams) 85885.9 [place] Body Weight 105 % [place] Body Weight 117 Body Mass Index (BMI) 23.2 Weight Status Approriate GI Symptoms GI Symptoms None Last BM none Difficult in: None Skin Integrity/Comment: intact Estimated Nutritional Goals BEE in Kcals: Using Current wt Calories/Kcals/Kg 30-35 Kcals Calculated 3737-1641 Protein: Using Current wt Protein g/k.3-1.5 Protein Calculated 73-84 Fluid: ml 1680-1960ml (1ml/kcal) Nutritional Problem 2. Problem Problem altered nutrition related lab values Etiology imbalanced electrolytes and fluid Signs/Symptoms: Na 129, K 3.0, Ca 8.2, Phos 1. 9, Mg 1.6 1. Problem Problem increased nutrition needs ( calorie and protein) Etiology increased metabolic demand and energy expenditure Signs/Symptoms: dx of sepsis Intervention/Recommendation Comments 1. continue with regular diet as ordered. If oral diet not appropriate, will consider alternative nutrition route. 2. Monitor PO intake, wt, labs and skin integrity 3. F/U as high risk in 2-3 days, 07/24-07/25 Expected Outcomes/Goals Expected Outcomes/Goals 1. Pt to meet at least 75% of nutritional needs. 2. Wt stability, skin to remain intact, labs to normalize
--- NOTE | 2017-07-25 15:09 | General Progress Note ---
Subjective - Review of Systems Service Date: 07/25/17 Subjective: awake, more verbal today, comfortable Objective - Results Result Diagrams: 07/25/17 05:32 07/25/17 05:32 Recent Labs: Laboratory Last Values WBC 8.1 Th/cmm (4.8-10.8) 07/25/17 05:32 RBC 3.55 Mil/cmm (3.80-5.20) L 07/25/17 05:32 Hgb 10.1 gm/dL (12-16) L 07/25/17 05:32 Hct 30.7 % (41.0-60) L 07/25/17 05:32 MCV 86.4 fl (81-100) 07/25/17 05:32 MCH 28.4 pg (27.0-31.0) 07/25/17 05:32 MCHC Differential 32.8 pg (28.0-36.0) 07/25/17 05:32 RDW 14.3 % (11.5-20.0) 07/25/17 05:32 Plt Count 201 Th/cmm (150-400) D 07/25/17 05:32 MPV 7.7 fl 07/25/17 05:32 Neutrophils % 78.3 % (40.0-80.0) 07/24/17 05:32 Band Neutrophils % 2 % (0-10) 07/25/17 05:32 Lymphocytes % 13.5 % (20.0-50.0) L 07/24/17 05:32 Monocytes % 7.4 % (2.0-10.0) 07/24/17 05:32 Eosinophils % 0.8 % (0.0-5.0) 07/24/17 05:32 Basophils % 0.0 % (0.0-2.0) 07/24/17 05:32 Neutrophils (Manual) 73 % (40-80) 07/25/17 05:32 Lymphocytes 16 % (20-50) L 07/25/17 05:32 Monocytes 8 % (2-10) 07/25/17 05:32 Eosinophils 1 % (0-5) 07/25/17 05:32 Basophils 0 % (0-3) 07/22/17 15:10 Metamyelocytes 3 % (0-0) H 07/23/17 04:15 Myelocytes 1 % 07/23/17 04:15 Hypochromia 1+ 07/23/17 04:15 Platelet Estimate ADEQUATE (NORMAL) 07/22/17 15:10 Platelet Morphology PLATELET CLUMPS SEEN (NORMAL) 07/23/17 04:15 Microcytosis 1+ 07/23/17 04:15 RBC Morph Micro Appear NORMAL (NORMAL) 07/23/17 04:15 Eos Smear Source URINE 07/22/17 17:30 Eos Smear Total Cells NONE SEEN (NONE SEEN) 07/22/17 17:30 PT 10.9 SECONDS (9.5-11.5) 07/22/17 05:05 INR 1.05 (0.5-1.4) 07/22/17 05:05 PTT (Actin FS) 29.4 SECONDS (26.0-38.0) 07/22/17 05:05 Sodium 136 mEq/L (136-145) 07/25/17 05:32 Potassium 3.3 mEq/L (3.5-5.1) L 07/25/17 05:32 Chloride 109 mEq/L (98-107) H 07/25/17 05:32 Carbon Dioxide 21.8 mEq/L (21.0-31.0) 07/25/17 05:32 Anion Gap 8.5 (7.0-16.0) 07/25/17 05:32 BUN 7 mg/dL (7-25) 07/25/17 05:32 Creatinine 0.5 mg/dL (0.6-1.2) L 07/25/17 05:32 Est GFR ( Amer) TNP 07/25/17 05:32 Est GFR (Non-Af Amer) TNP 07/25/17 05:32 BUN/Creatinine Ratio 14.0 07/25/17 05:32 Glucose 130 mg/dL (70-105) H 07/25/17 05:32 Whole Bld Lactic Acid 2.13 mmol/L (0.60-1.99) H* 07/23/17 04:15 Calcium 7.8 mg/dL (8.6-10.3) L 07/25/17 05:32 Phosphorus 2.2 mg/dL (2.5-5.0) L 07/24/17 05:32 Magnesium 2.0 mg/dL (1.9-2.7) 07/23/17 04:15 Total Bilirubin 0.8 mg/dL (0.3-1.0) 07/22/17 15:10 AST 29 U/L (13-39) 07/22/17 15:10 ALT 22 U/L (7-52) 07/22/17 15:10 Alkaline Phosphatase 114 U/L (34-104) H 07/22/17 15:10 Ammonia 38 umol/L (16-53) 07/21/17 14:15 Troponin I 0.65 ng/mL (0.01-0.05) H* 07/21/17 14:15 Total Protein 6.0 gm/dL (6.0-8.3) 07/22/17 15:10 Albumin 3.3 gm/dL (3.7-5.3) L 07/22/17 15:10 Globulin 2.7 gm/dL 07/22/17 15:10 Albumin/Globulin Ratio 1.2 (1.0-1.8) 07/22/17 15:10 Urine Source RANDOM 07/22/17 17:30 Urine Color YELLOW 07/22/17 17:30 Urine Clarity HAZY (CLEAR) 07/22/17 17:30 Urine pH 6.5 (4.6 - 8.0) 07/22/17 17:30 Ur Specific [place] 1.015 (1.005-1.030) 07/22/17 17:30 Urine Protein TRACE mg/dL (NEGATIVE) 07/22/17 17:30 Urine Glucose (UA) NEGATIVE mg/dL (NEGATIVE) 07/22/17 17:30 Urine Ketones NEGATIVE mg/dL (NEGATIVE) 07/22/17 17:30 Urine Blood LARGE (NEGATIVE) H 07/22/17 17:30 Urine Nitrate POSITIVE (NEGATIVE) H 07/22/17 17:30 Urine Bilirubin NEGATIVE (NEGATIVE) 07/22/17 17:30 Urine Urobilinogen 0.2 E.U./dL (0.2 - 1.0) 07/22/17 17:30 Ur Leukocyte Esterase SMALL (NEGATIVE) H 07/22/17 17:30 Urine RBC 5-10 /hpf (0-5) H 07/22/17 17:30 Urine WBC 2-5 /hpf (0-5) 07/22/17 17:30 Ur Epithelial Cells FEW /lpf (FEW) 07/22/17 17:30 Urine Bacteria NONE SEEN /hpf (NONE SEEN) 07/22/17 17:30 Ur Random Sodium 113 mmol/L 07/22/17 17:30 Urine Creatinine 42.0 mg/dl (28.0-217.0) 07/22/17 17:30 - Physical Exam Vitals and I&O: Vital Signs Temp 99.0 F 07/25/17 14:36 Pulse 90 07/25/17 14:36 Resp 18 07/25/17 14:36 BP 125/71 07/25/17 14:36 Pulse Ox 97 07/25/17 14:36 Intake & Output 07/24/17 07/25/17 07/25/17 18:59 06:59 18:59 Intake Total 1100 1200 1000 Balance 1100 1200 1000 Weight (lbs) 59.965 kg Intake: Intake, IV Amount 1100 1000 1000 D5-0.9%Ns 1,000 ml @ 100 1000 1000 1000 mls/hr IV .Q10H [facility] Rx#: [id number] cefTRIAXone 2 gm In 100 Sodium Chloride 0.9% 100 ml @ 100 mls/hr IV Q24H [facility] Rx#:[id number] Oral 200 Other: # Voids 3 # Bowel Movements 0 Active Medications: Current Medications Acetaminophen (Tylenol) 650 mg PO Q4H PRN PRN Reason: Pain Or Fever >100 Stop: 09/19/17 13:36 Last Admin: 07/24/17 05:08 Dose: 650 mg Heparin Sodium (Porcine) (Heparin) 5,000 units SUBQ Q12HR [facility] Stop: 09/19/17 20:59 Last Admin: 07/25/17 10:13 Dose: 5,000 units Dextrose/Sodium Chloride (D5-0.9%Ns) 1,000 mls @ 100 mls/hr IV .Q10H [facility] Stop: 09/20/17 14:14 Last Admin: 07/25/17 12:07 Dose: 100 mls/hr Ceftriaxone Sodium 2 gm/ (Sodium Chloride) 100 mls @ 100 mls/hr IV Q24H [facility] Stop: 09/21/17 16:14 Last Infusion: 07/24/17 17:09 Dose: Infused Lactobacillus Rhamnosus (Culturelle 15b) 1 each PO DAILY [facility] Stop: 09/22/17 08:59 Last Admin: 07/25/17 10:14 Dose: 1 each Miscellaneous (Vte Chemical Prophylaxis Screen/ Admission) 1 ea MC PRN PRN PRN Reason: PROTOCOL Stop: 09/19/17 16:44 Miscellaneous (Probiotic Screen) 1 ea MC PRN PRN PRN Reason: PROTOCOL Stop: 09/21/17 15:22 Ondansetron HCl (Zofran) 4 mg IV Q4H PRN PRN Reason: Nausea / Vomiting Stop: 09/19/17 16:55 Oxybutynin Chloride (Ditropan) 5 mg PO BID [facility] Stop: 09/20/17 16:59 Last Admin: 07/25/17 10:14 Dose: 5 mg Tamsulosin HCl (Flomax) 0.4 mg PO DAILY [facility] Stop: 09/19/17 15:44 Last Admin: 07/25/17 10:14 Dose: 0.4 mg Tramadol HCl (Ultram) 50 mg PO Q6HR PRN PRN Reason: Pain (Moderate) Stop: 09/19/17 16:56 Last Admin: 07/24/17 21:26 Dose: 50 mg General: Alert, No acute distress HEENT: PERRLA, EOMI, Mucous membr. moist/pink Neck: Supple, +2 carotid pulse wo bruit Cardiovascular: Regular rate, Normal S1, Normal S2 Lungs: Clear to auscultation Abdomen: Bowel sounds, Soft Extremities: no Edema Neurological: Sensation intact Skin: no Rash Psych/Mental Status: Mood NL - Procedures Procedures: Procedures Procedure Code Date CYSTOSCOPY 40031 07/21/17 DILATION OF LEFT URETER WITH INTRALUMINAL DEVICE, ENDO [id number] 07/21/17 EXTIRPATION OF MATTER FROM BLADDER, ENDO [id number] 07/21/17 Assessment/Plan - Problem List Patient Problems: All Active Problems Dementia (Acute) F03.90 Depression (Acute) F32.9 Hydronephrosis (Acute) N13.30 Left ureteral stone (Acute) N20.1 Osteoarthritis (Acute) M19.90 Prerenal azotemia (Acute) R79.89 - Assessment Assessment: Pre renal azotemia Sepsis 2nd to UTI Left hydroureter 2nd to Left ureteral stone s/p left ureteral stent GB stones Electrolyte imbalance hypokalemia - Plan Plan: Lab - Result Diagrams 07/22/17 05:05 07/22/17 05:05 Current Medications Acetaminophen (Tylenol) 650 mg PO Q4H PRN PRN Reason: Pain Or Fever >100 Stop: 09/19/17 13:36 Last Admin: 07/21/17 20:26 Dose: 650 mg Heparin Sodium (Porcine) (Heparin) 5,000 units SUBQ Q12HR [facility] Stop: 09/19/17 20:59 Last Admin: 07/22/17 10:38 Dose: Not Given Levofloxacin (Levaquin Pb) 500 mg in 100 mls @ 100 mls/hr IV Q24HR [facility] Stop: 09/19/17 14:44 Last Admin: 07/21/17 18:03 Dose: 100 mls/hr Dextrose/Sodium Chloride (D5-0.9%Ns) 1,000 mls @ 100 mls/hr IV .Q10H [facility] Stop: 09/20/17 14:14 Sodium Phosphate 20 mmole/ (Sodium Chloride) 256.6667 mls @ 42.5 mls/hr IV X1 ONE Stop: 07/22/17 20:14 Magnesium Sulfate (Magnesium Sulfate Premix) 2 gm in 50 mls @ 25 mls/hr IV X1 ONE Stop: 07/22/17 16:12 Miscellaneous (Vte Chemical Prophylaxis Screen/ Admission) 1 ea MC PRN PRN PRN Reason: PROTOCOL Stop: 09/19/17 16:44 Ondansetron HCl (Zofran) 4 mg IV Q4H PRN PRN Reason: Nausea / Vomiting Stop: 09/19/17 16:55 Oxybutynin Chloride (Ditropan) 5 mg PO BID [facility] Stop: 09/20/17 16:59 Tamsulosin HCl (Flomax) 0.4 mg PO DAILY [facility] Stop: 09/19/17 15:44 Last Admin: 07/22/17 10:15 Dose: Not Given Tramadol HCl (Ultram) 50 mg PO Q6HR PRN PRN Reason: Pain (Moderate) Stop: 09/19/17 16:56 Lab - Result Diagrams 07/25/17 05:32 07/25/17 05:32 replace Na, K, P04, Mg continue ABx switch to D5NS f/u electrolytes, cbc Nutritional Asmnt/Malnutr-PDOC - Dietary Evaluation Malnutrition Findings (Please click <Entered> for more info): Nutritional Asmnt/Malnutrition Start: 07/22/17 15: 07 Text: Status: Complete Freq: Document 07/22/17 15:07 EDWARDRAGINI (Rec: 07/22/17 15:21 [email or web address] [id number]) Nutritional Asmnt/Malnutrition Patient General Information Nutritional Screening High Risk Diagnosis sepsis, abdominal pain, acute kdney injury Pertinent Medical Hx/Surgical Hx None Subjective Information Pt was not in room at time of visit. Spoke with RN, pt was in surgery, NPO this morning. Per notes, pt had cystoscopy and left systic stent placement scheduled this morning. Per notes, pt consumed 75% of lunch on 07/21. Current Diet Order/ Nutrition Support Regular Pertinent Medications D5-0.9%Ns, levaquin, magnesium , sodium phosphate Pertinent Labs 07/22 Na 129, K 3.0, Cl 102, BUN 11, Cr 0.7, Glucose 159, Ca 8.2, Phos 1.9, Mg 1.6 Nutritional Hx/Data Height 1.55 m Height (Calculated Centimeters) 154.9 Current Weight (lbs) 55.792 kg Weight (Calculated Kilograms) 55.8 Weight (Calculated Grams) 74233.9 [place] Body Weight 105 % [place] Body Weight 117 Body Mass Index (BMI) 23.2 Weight Status Approriate GI Symptoms GI Symptoms None Last BM none Difficult in: None Skin Integrity/Comment: intact Estimated Nutritional Goals BEE in Kcals: Using Current wt Calories/Kcals/Kg 30-35 Kcals Calculated 2865-4261 Protein: Using Current wt Protein g/k.3-1.5 Protein Calculated 73-84 Fluid: ml 1680-1960ml (1ml/kcal) Nutritional Problem 2. Problem Problem altered nutrition related lab values Etiology imbalanced electrolytes and fluid Signs/Symptoms: Na 129, K 3.0, Ca 8.2, Phos 1. 9, Mg 1.6 1. Problem Problem increased nutrition needs ( calorie and protein) Etiology increased metabolic demand and energy expenditure Signs/Symptoms: dx of sepsis Intervention/Recommendation Comments 1. continue with regular diet as ordered. If oral diet not appropriate, will consider alternative nutrition route. 2. Monitor PO intake, wt, labs and skin integrity 3. F/U as high risk in 2-3 days, 07/24-07/25 Expected Outcomes/Goals Expected Outcomes/Goals 1. Pt to meet at least 75% of nutritional needs. 2. Wt stability, skin to remain intact, labs to normalize
[2017-07-25] MEDS ORDERED: Potassium Chloride 20 mEq ER Tab PO SCH (16:00)
--- NOTE | 2017-07-26 07:04 | Consultation ---
DATE OF CONSULTATION: 07/25/[address] Vivas. HISTORY AND PHYSICAL: This is an 86-year-old female patient who was recently seen in the Emergency Room at [facility] with abdominal pain. Following this, the patient was transferred to [facility] due to insurance reason, the patient was found to have renal stone with pyelonephritis. PAST MEDICAL HISTORY: Kidney stones, gallstones, major depression, dementia. FAMILY HISTORY: Unremarkable. SOCIAL HISTORY: No history of smoking, alcohol abuse. ALLERGIES: No known allergies. PHYSICAL EXAMINATION: VITAL SIGNS: Blood pressure 130/80, pulse 70, respirations 20. HEAD: Normocephalic. No lumps or bumps. EYES: Pupils equal, reactive to light. Fundi show AV nicking, sclerae white, conjunctivae pink. NECK: Carotid 2+. Normal upstroke. JVD 10 cm was sternal angle. Thyroid not palpable. Lymph nodes not palpable. CHEST: Shows increased AP diameter. No kyphosis, scoliosis. LUNGS: Bilateral bronchovesicular breath sounds. HEART: PMI fifth intercostal space with lateral to midclavicular line. S1, S2. No S3, S4, soft systolic murmur. ABDOMEN: Soft. Liver, spleen not palpable. No organomegaly. Bowel sounds active. The patient has diffuse tenderness, no rebound tenderness. NEUROLOGIC: Unremarkable. EXTREMITIES: Peripheral pulses 2+. No pedal edema. CLINICAL IMPRESSION: Acute pyelonephritis, left ureteral stent, hydronephrosis of the left side, gallstones, major depression and dementia. PLAN: The patient is cleared for surgery. [facility]# [id number]
[2017-07-26 10:00] LABS: CREATININEURINE 33.8 mg/dl
[2017-07-26 10:01] LABS: MICROALBUMIN RANDOM RUINE 62.8
--- NOTE | 2017-07-27 14:10 | Pathology Report ---
[id number] Collection date: 07/22/2017 Surgeon: Dr. Ambreen Rea Specimen Description: Kidney / bladder stone. Gross Description: Received in formalin are two sapp-white fragments of stone like material each measuring 0.1 in greatest dimension. There are no soft tissue fragments. Gross description only. Gross Pathologic diagnosis: Kidney / bladder stone, for gross identification. Comment: The stone material is being sent out for chemical analysis, and the results of this specialized testing will be issued as a separate report. JOB# [id number] [facility]ITALAdalgisa
== END 2017-07-25 15:50 | disposition home or self-care (01) | DRG 720 ==
LOC: TELE 12:48 → ICU 16:56 → TELE 07-23 18:51 → MSI 07-25 10:07
PROVIDERS: ADMIT Internal Medicine; ATTEND Internal Medicine
PROC: 0TCB8ZZ Extirpation of Matter from Bladder, Via Natural or Artificial Opening Endoscopic (ICD-10-PCS; principal; 2017-07-22)
PROC: 0T778DZ Dilation of Left Ureter with Intraluminal Device, Via Natural or Artificial Opening Endoscopic (ICD-10-PCS; 2017-07-22)
DX: A41.9 Sepsis, unspecified organism (principal); M48.54XA Collapsed vertebra, not elsewhere classified, thoracic region, initial encounter for fracture; M48.56XA Collapsed vertebra, not elsewhere classified, lumbar region, initial encounter for fracture; D70.9 Neutropenia, unspecified; N13.2 Hydronephrosis with renal and ureteral calculous obstruction; F03.90 Unspecified dementia, unspecified severity, without behavioral disturbance, psychotic disturbance, mood disturbance, and anxiety; F32.9 Major depressive disorder, single episode, unspecified; M19.90 Unspecified osteoarthritis, unspecified site; K80.20 Calculus of gallbladder without cholecystitis without obstruction; B96.4 Proteus (mirabilis) (morganii) as the cause of diseases classified elsewhere; E87.6 Hypokalemia; N10 Acute pyelonephritis
CPT/HCPCS: 36415-UA; 71045-TC; 76000-TC; 80048-TC; 80053-TC; 81001-TC; 81015-TC; 82043-90; 82140-TC; 82570-TC; 83605; 83735-TC; 84100-TC; 84300-TC; 84484-TC; 85007-TC; 85025-TC; 85027-TC; 85610-TC; 87086-90; 90799; 93005; 94760; J0692; J0696; J1644; J1956; J2250; J3370; J3475; J3480; J7042; Q9967; V2790; Z7512; Z7610